=== PATIENT | female | born 1990 | race Caucasian/White ===

== ENCOUNTER 2020-05-27 14:42 | Emergency (ER) | payer OTHER ==
[2020-05-27 15:07] VITALS: RESP 18; TEMP 98.3
[2020-05-27 15:24] LABS: Basophils # (A) 0.1 k/uL (0-0.2); Basophils % (A) 1 %; Eosinophils # (A) 0.1 k/uL (0-0.7); Eosinophils % (A) 1 %; HCT 47.4 % (34.0-46.0); HGB 16.1 gm/dL (11.4-16.0); Lymphocytes # (A) 1.9 k/uL (1.0-4.8); Lymphocytes % (A) 26 %; MCHC 34.1 g/dL (31.0-37.0); MCV 96.7 fL (80.0-100.0); Mean Platelet Volume 7.5; Monocytes # (A) 0.3 k/uL (0-1.0); Monocytes % (A) 4 %; Neutrophils % (A) 67 %; Platelet Count 383 k/uL (150-450); RDW 13.9 % (11.5-15.5); WBC 7.5 k/uL (3.8-10.6)
[2020-05-27 15:32] LABS: Partial Thromboplastin Time 23.2 sec (22.0-30.0); Prothrombin Time 10.7 sec (9.0-12.0)
[2020-05-27 15:33] LABS: ALT 100 U/L (4-34); AST 100 U/L (14-36); African American GFR (CKD) >90 (>60 ml/min/1.73 sqM); Albumin 5.5 g/dL (3.5-5.0); Alkaline Phosphatase 74 U/L (38-126); Anion Gap 19 mmol/L; Blood Urea Nitrogen 11 mg/dL (7-17); Calcium 10.1 mg/dL (8.4-10.2); Carbon Dioxide 21 mmol/L (22-30); Chloride 98 mmol/L (98-107); Glucose 117 mg/dL (74-99); Magnesium 1.8 mg/dL (1.6-2.3); Non-African American GFR(CKD) >90 (>60 ml/min/1.73 sqM); Potassium 3.8 mmol/L (3.5-5.1); Sodium 138 mmol/L (137-145); Total Bilirubin 0.6 mg/dL (0.2-1.3)
[2020-05-27 15:37] LABS: Alcohol 190 mg/dL
[2020-05-27] MEDS ORDERED: SODIUM CHLORIDE 0.9% 1,000 ML IV ONE (16:10)
[2020-05-27] MEDS ORDERED: LORazepam 2 MG/ML INJ IV STA (16:17)
[2020-05-27] MEDS ORDERED: SODIUM CHLORIDE 0.9% 500 ML 500 ML IV ONE ×2 (16:18→18:07)
--- NOTE | 2020-05-27 16:20 | ED ---
General Adult HPI - General Chief complaint: Arrhythmia/Palpitations Stated complaint: SOB,Poss Dehydrated Time Seen by Provider: 05/27/20 16:10 Source: patient, RN notes reviewed, old records reviewed Mode of arrival: ambulatory Limitations: no limitations - History of Present Illness Initial comments: 29-year-old female presented for evaluation of racing heart, dehydration. Patient admits to drinking one pint of alcohol over the past several days. She states this is typical of her she goes on a several-day binge drinking and then abstains. She's had nausea and vomiting. She feels very dehydrated and feels her heart is racing. She denies central chest pain. She has some mild dyspnea associated with this. No abdominal pain. No suicidal or homicidal ideation. - Related Data Home Medications Medication Instructions Recorded Confirmed FLUoxetine HCL [PROzac] 10 mg PO DAILY 05/27/20 05/27/20 Previous Rx's Medication Instructions Recorded diazePAM [Valium] 5 mg PO TID PRN 3 Days #9 tab 05/27/20 Allergies Allergy/AdvReac Type Severity Reaction Status Date / Time No Known Allergies Allergy Verified 05/27/20 17:17 Review of Systems ROS Statement: Those systems with pertinent positive or pertinent negative responses have been documented in the HPI. ROS Other: All systems not noted in ROS Statement are negative. Past Medical History Past Medical History: No Reported History Past Surgical History: No Surgical Hx Reported Smoking Status: Never smoker Past Alcohol Use History: Daily Past Drug Use History: None Reported General Exam Limitations: no limitations General appearance: alert, in no apparent distress Head exam: Present: atraumatic, normocephalic Eye exam: Present: normal appearance, PERRL ENT exam: Present: mucous membranes dry Neck exam: Present: normal inspection. Absent: tenderness, meningismus Respiratory exam: Present: normal lung sounds bilaterally. Absent: respiratory distress, wheezes, rales Cardiovascular Exam: Present: normal rhythm, tachycardia GI/Abdominal exam: Present: soft. Absent: distended, tenderness, guarding, rebound Extremities exam: Present: normal inspection, normal capillary refill. Absent: calf tenderness Neurological exam: Present: alert, oriented X3, CN II-XII intact. Absent: motor sensory deficit Psychiatric exam: Present: normal affect, normal mood Skin exam: Present: warm, dry, intact Course Vital Signs 05/27/20 05/27/20 05/27/20 14:57 16:54 18:28 Temperature 98.3 F Pulse Rate 140 H 109 H 117 H Respiratory 18 18 18 Rate Blood Pressure 133/99 124/88 137/93 O2 Sat by Pulse 99 100 98 Oximetry - Reevaluation(s) Reevaluation #1: 05/27/20 17:56 Chest x-ray negative for focal pneumonia or acute findings EKG Findings - EKG Comments: EKG Findings:: EKG: Sinus tachycardia, rate of 134, FL interval 118, QRS duration 82, QTC 459, no ST segment elevation. Medical Decision Making - Medical Decision Making 29-year-old female presenting with alcohol intoxication, dehydration, palpitations. Patient is tachycardic, patient dehydrated. She's had vomiting this morning. She is to drinking 1/5 of vodka yesterday and had a shot of alcohol this morning. Patient's has had a CBC showing hemoconcentration with a hemoglobin 16. Otherwise normal. Patient has normal electrolytes, negative d- dimer, negative troponin, urinalysis shows 3+ ketones consistent with dehydration and alcoholic acidosis. Patient given 2 L of IV fluid, as well as Ativan. She is feeling better. She will maintain oral hydration at home. She's given Valium for withdrawal symptoms she will follow with her primary care physician and return with worsening or changing symptoms. - Lab Data Result diagrams: 05/27/20 15:15 05/27/20 15:15 Lab Results 05/27/20 05/27/20 05/27/20 Range/Units 15:15 15:15 15:15 WBC 7.5 (3.8-10.6) k/uL RBC 4.90 (3.80-5.40) m/uL Hgb 16.1 H (11.4-16.0) gm/dL Hct 47.4 H (34.0-46.0) % MCV 96.7 (80.0-100.0) fL MCH 33.0 (25.0-35.0) pg MCHC 34.1 (31.0-37.0) g/dL RDW 13.9 (11.5-15.5) % Plt Count 383 (150-450) k/uL MPV 7.5 Neutrophils % 67 % Lymphocytes % 26 % Monocytes % 4 % Eosinophils % 1 % Basophils % 1 % Neutrophils # 5.0 (1.3-7.7) k/uL Lymphocytes # 1.9 (1.0-4.8) k/uL Monocytes # 0.3 (0-1.0) k/uL Eosinophils # 0.1 (0-0.7) k/uL Basophils # 0.1 (0-0.2) k/uL PT 10.7 (9.0-12.0) sec INR 1.0 (<1.2) APTT 23.2 (22.0-30.0) sec D-Dimer (<0.60) mg/L FEU Sodium 138 (137-145) mmol/L Potassium 3.8 (3.5-5.1) mmol/L Chloride 98 (98-107) mmol/L Carbon Dioxide 21 L (22-30) mmol/L Anion Gap 19 mmol/L BUN 11 (7-17) mg/dL Creatinine 0.72 (0.52-1.04) mg/dL Est GFR (CKD-EPI)AfAm >90 (>60 ml/min/1.73 sqM) Est GFR (CKD-EPI)NonAf >90 (>60 ml/min/1.73 sqM) Glucose 117 H (74-99) mg/dL Calcium 10.1 (8.4-10.2) mg/dL Magnesium 1.8 (1.6-2.3) mg/dL Total Bilirubin 0.6 (0.2-1.3) mg/dL AST 100 H (14-36) U/L ALT 100 H (4-34) U/L Alkaline Phosphatase 74 (38-126) U/L Troponin I (0.000-0.034) ng/mL Total Protein 9.0 H (6.3-8.2) g/dL Albumin 5.5 H (3.5-5.0) g/dL Urine Color Urine Appearance (Clear) Urine pH (5.0-8.0) Ur Specific [place] (1.001-1.035) Urine Protein (Negative) Urine Glucose (UA) (Negative) Urine Ketones (Negative) Urine Blood (Negative) Urine Nitrite (Negative) Urine Bilirubin (Negative) Urine Urobilinogen (<2.0) mg/dL Ur Leukocyte Esterase (Negative) Urine RBC (0-5) /hpf Urine WBC (0-5) /hpf Ur Squamous Epith Cells (0-4) /hpf Urine Mucus (None) /hpf Serum Alcohol 190 mg/dL 05/27/20 05/27/20 05/27/20 Range/Units 15:15 15:15 18:27 WBC (3.8-10.6) k/uL RBC (3.80-5.40) m/uL Hgb (11.4-16.0) gm/dL Hct (34.0-46.0) % MCV (80.0-100.0) fL MCH (25.0-35.0) pg MCHC (31.0-37.0) g/dL RDW (11.5-15.5) % Plt Count (150-450) k/uL MPV Neutrophils % % Lymphocytes % % Monocytes % % Eosinophils % % Basophils % % Neutrophils # (1.3-7.7) k/uL Lymphocytes # (1.0-4.8) k/uL Monocytes # (0-1.0) k/uL Eosinophils # (0-0.7) k/uL Basophils # (0-0.2) k/uL PT (9.0-12.0) sec INR (<1.2) APTT (22.0-30.0) sec D-Dimer 0.21 (<0.60) mg/L FEU Sodium (137-145) mmol/L Potassium (3.5-5.1) mmol/L Chloride (98-107) mmol/L Carbon Dioxide (22-30) mmol/L Anion Gap mmol/L BUN (7-17) mg/dL Creatinine (0.52-1.04) mg/dL Est GFR (CKD-EPI)AfAm (>60 ml/min/1.73 sqM) Est GFR (CKD-EPI)NonAf (>60 ml/min/1.73 sqM) Glucose (74-99) mg/dL Calcium (8.4-10.2) mg/dL Magnesium (1.6-2.3) mg/dL Total Bilirubin (0.2-1.3) mg/dL AST (14-36) U/L ALT (4-34) U/L Alkaline Phosphatase (38-126) U/L Troponin I <0.012 (0.000-0.034) ng/mL Total Protein (6.3-8.2) g/dL Albumin (3.5-5.0) g/dL Urine Color Yellow Urine Appearance Cloudy H (Clear) Urine pH 6.5 (5.0-8.0) Ur Specific [place] 1.024 (1.001-1.035) Urine Protein 2+ H (Negative) Urine Glucose (UA) Negative (Negative) Urine Ketones 3+ H (Negative) Urine Blood Negative (Negative) Urine Nitrite Negative (Negative) Urine Bilirubin Negative (Negative) Urine Urobilinogen <2.0 (<2.0) mg/dL Ur Leukocyte Esterase Negative (Negative) Urine RBC <1 (0-5) /hpf Urine WBC 2 (0-5) /hpf Ur Squamous Epith Cells 8 H (0-4) /hpf Urine Mucus Many H (None) /hpf Serum Alcohol mg/dL Disposition Clinical Impression: Dehydration, Alcohol intoxication Disposition: HOME SELF-CARE Condition: Good Instructions (If sedation given, give patient instructions): Dehydration (ED), Alcohol Intoxication (ED) Prescriptions: diazePAM [Valium] 5 mg PO TID PRN 3 Days #9 tab PRN Reason: Anxiety Is patient prescribed a controlled substance at d/c from ED?: No Referrals: Nonstaff,Physician [Primary Care Provider] - 1-2 days Kory Perea [STAFF PHYSICIAN] - 1-2 days Time of Disposition: 19:00
--- NOTE | 2020-05-27 17:00 | XR ---
EXAMINATION TYPE: XR chest 2V DATE OF EXAM: 05/27/2020 COMPARISON: NONE HISTORY: Short of breath TECHNIQUE: 2 views FINDINGS: Heart and mediastinum are normal. Lungs are clear. Diaphragm is normal. Bony thorax appears normal. IMPRESSION: Normal chest.
[2020-05-27 18:30] VITALS: BP 137/93; PULSE 117
[2020-05-27 18:43] LABS: Appearance,Urine Cloudy (Clear); Bilirubin,Urine Negative (Negative); Blood,Urine Negative (Negative); Color,Urine Yellow; Glucose,Urine (UA) Negative (Negative); Ketones,Urine 3+ (Negative); Leukocyte Esterase,Urine Negative (Negative); Mucus,Urine Many /hpf; Nitrite,Urine Negative (Negative); PH, Urine 6.5 (5.0-8.0); Protein,Urine 2+ (Negative); RBC,Urine <1 /hpf (0-5); Specific Gravity,Urine 1.024 (1.001-1.035); Squamous Epithelial Cell,Urine 8 /hpf (0-4); Urobilinogen,Urine <2.0 mg/dL (<2.0); WBC,Urine 2 /hpf (0-5)
== END 2020-05-27 19:43 | disposition home or self-care (01) ==
LOC: EC 14:42
DX: F10.129 Alcohol abuse with intoxication, unspecified (principal); E86.0 Dehydration; R00.0 Tachycardia, unspecified; Y90.9 Presence of alcohol in blood, level not specified; Z79.899 Other long term (current) drug therapy
CPT/HCPCS: 36415; 93005; 85379; 80053; 83735; 84484; 85025; 85610; 85730; 81001; 71046; 99285; 96374; 96361 ×3; G0480; J2060; 80320

== ENCOUNTER 2021-07-08 23:52 | Observation (INO) | payer OTHER ==
[2021-07-09] MEDS ORDERED: SODIUM CHLORIDE 0.9% 1,000 ML with THIAMINE 100 MG, FOLIC ACID 1 MG IV ONE ×3 (00:13)
[2021-07-09] MEDS ORDERED: LORazepam 2 MG/ML INJ IV STA (00:16)
--- NOTE | 2021-07-09 00:22 | ED ---
Alcohol HPI - General Chief Complaint: Alcohol Stated Complaint: ETOH Time Seen by Provider: 07/09/21 00:05 Source: patient, family, RN notes reviewed Mode of arrival: ambulatory Limitations: no limitations - History of Present Illness Initial Comments: This is a pleasant 30-year-old female who presents to [facility] stating that she is undergoing alcohol withdrawal. Patient states she has not had anything to drink for 2 days. Patient admits to 1.5 fifths of alcohol per day. This was hard work. 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 She denies any seizure activity. She denies any auditory or visual hallucinations. She has mild headache. Nausea without vomiting. No changes in balance. No chest pain or shortness of breath. Patient states that she has a history of tachycardia secondary to alcohol use and withdrawal. Patient denies chance of . Patient has no significant past medical history otherwise. Patient is a nonsmoker however she does jose luis. She denies any illicit drug abuse. Patient denies any recent illness. Patient fully vaccinated against COVID-19. - Related Data Home Medications Medication Instructions Recorded Confirmed FLUoxetine HCL [PROzac] 10 mg PO DAILY 05/27/20 05/27/20 Previous Rx's Medication Instructions Recorded diazePAM [Valium] 5 mg PO TID PRN 3 Days #9 tab 05/27/20 Allergies Allergy/AdvReac Type Severity Reaction Status Date / Time No Known Allergies Allergy Verified 07/09/21 00:02 Review of Systems ROS Statement: Those systems with pertinent positive or pertinent negative responses have been documented in the HPI. ROS Other: All systems not noted in ROS Statement are negative. Past Medical History Past Medical History: No Reported History History of Any Multi-Drug Resistant Organisms: None Reported Past Surgical History: No Surgical Hx Reported Past Psychological History: Anxiety, Depression Smoking Status: Never smoker Past Alcohol Use History: Daily Past Drug Use History: None Reported General Exam - General Exam Comments Initial Comments: Mildly anxious appearing 30-year-old female presents in no acute distress. Patient does not appear to be ill or toxic. Cranial nerves II through XII are intact. Patient alert and oriented 4. Limitations: no limitations General appearance: alert, in no apparent distress Head exam: Present: atraumatic, normocephalic, normal inspection Eye exam: Present: normal appearance, PERRL, EOMI. Absent: scleral icterus, conjunctival injection, periorbital swelling ENT exam: Present: normal exam, mucous membranes moist Neck exam: Present: normal inspection. Absent: tenderness, meningismus, lym phadenopathy Respiratory exam: Present: normal lung sounds bilaterally. Absent: respiratory distress, wheezes, rales, rhonchi, stridor Cardiovascular Exam: Present: normal rhythm, tachycardia, normal heart sounds. Absent: systolic murmur, diastolic murmur, rubs, gallop, clicks GI/Abdominal exam: Present: soft, normal bowel sounds. Absent: distended, tenderness, guarding, rebound, rigid Extremities exam: Present: normal inspection, full ROM, normal capillary refill. Absent: tenderness, pedal edema, joint swelling, calf tenderness Back exam: Present: normal inspection Neurological exam: Present: alert, oriented X3, CN II-XII intact, normal gait. Absent: motor sensory deficit Psychiatric exam: Present: normal mood, anxious. Absent: homicidal ideation, suicidal ideation Skin exam: Present: warm, dry, intact, normal color. Absent: rash Course Vital Signs 07/08/21 23:56 Temperature 98.2 F Pulse Rate 119 H Respiratory 22 Rate Blood Pressure 137/92 O2 Sat by Pulse 96 Oximetry Medical Decision Making - Medical Decision Making Patient CIWA score is 4 for nausea without vomiting, mild headache, mild agitation, and mild anxiety. Noted the patient denies any suicidality or homicidality. Patient states her last drink of alcohol was 2 days ago. Patient's alcohol level was 376. Patient has 4+ ketones and a CO2 level of 17. 9 and Metabolic acidosis suspected. Patient reevaluated and is sleeping comfortably in bed. No distress. Patient will be admitted to [facility] hospitalist group for observation due to alcohol intoxication. The case was discussed in detail with ED attending physician. Presentation, findings, treatment plan discussed in detail. - Lab Data Result diagrams: 07/09/21 00:11 07/09/21 00:11 Lab Results 07/09/21 07/09/21 07/09/21 Range/Units 00:11 00:11 00:11 WBC 8.2 (3.8-10.6) k/uL RBC 5.10 (3.80-5.40) m/uL Hgb 15.9 (11.4-16.0) gm/dL Hct 46.1 H (34.0-46.0) % MCV 90.4 (80.0-100.0) fL MCH 31.2 (25.0-35.0) pg MCHC 34.5 (31.0-37.0) g/dL RDW 11.6 (11.5-15.5) % Plt Count 330 (150-450) k/uL MPV 7.9 Neutrophils % 67 % Lymphocytes % 25 % Monocytes % 6 % Eosinophils % 0 % Basophils % 1 % Neutrophils # 5.5 (1.3-7.7) k/uL Lymphocytes # 2.1 (1.0-4.8) k/uL Monocytes # 0.5 (0-1.0) k/uL Eosinophils # 0.0 (0-0.7) k/uL Basophils # 0.1 (0-0.2) k/uL PT 10.4 (9.0-12.0) sec INR 1.0 (<1.2) Sodium 136 L (137-145) mmol/L Potassium 4.0 (3.5-5.1) mmol/L Chloride 93 L (98-107) mmol/L Carbon Dioxide 17 L (22-30) mmol/L Anion Gap 26 mmol/L BUN 14 (7-17) mg/dL Creatinine 0.72 (0.52-1.04) mg/dL Est GFR (CKD-EPI)AfAm >90 (>60 ml/min/1.73 sqM) Est GFR (CKD-EPI)NonAf >90 (>60 ml/min/1.73 sqM) Glucose 78 (74-99) mg/dL POC Glucose (mg/dL) (75-99) mg/dL POC Glu Tax Audit Manager ID Calcium 9.4 (8.4-10.2) mg/dL Phosphorus 3.8 (2.5-4.5) mg/dL Magnesium 2.1 (1.6-2.3) mg/dL Total Bilirubin 0.9 (0.2-1.3) mg/dL AST 86 H (14-36) U/L ALT 61 H (4-34) U/L Alkaline Phosphatase 80 (38-126) U/L Total Protein 8.7 H (6.3-8.2) g/dL Albumin 5.3 H (3.5-5.0) g/dL Urine Color Urine Appearance (Clear) Urine pH (5.0-8.0) Ur Specific [place] (1.001-1.035) Urine Protein (Negative) Urine Glucose (UA) (Negative) Urine Ketones (Negative) Urine Blood (Negative) Urine Nitrite (Negative) Urine Bilirubin (Negative) Urine Urobilinogen (<2.0) mg/dL Ur Leukocyte Esterase (Negative) Urine RBC (0-5) /hpf Urine WBC (0-5) /hpf Ur Squamous Epith Cells (0-4) /hpf Hyaline Casts (0-2) /lpf Urine Mucus (None) /hpf Urine HCG, Qual (Not Detectd) Salicylates <1.0 mg/dL Urine Opiates Screen (NotDetected) Ur Oxycodone Screen (NotDetected) Urine Methadone Screen (NotDetected) Ur Propoxyphene Screen (NotDetected) Acetaminophen <10.0 ug/mL Ur Barbiturates Screen (NotDetected) U Tricyclic Antidepress (NotDetected) Ur Phencyclidine Scrn (NotDetected) Ur Amphetamines Screen (NotDetected) U Methamphetamines Scrn (NotDetected) U Benzodiazepines Scrn (NotDetected) Urine Cocaine Screen (NotDetected) U Marijuana (THC) Screen (NotDetected) Serum Alcohol 376 H* mg/dL 07/09/21 07/09/21 07/09/21 Range/Units 00:12 00:17 00:36 WBC (3.8-10.6) k/uL RBC (3.80-5.40) m/uL Hgb (11.4-16.0) gm/dL Hct (34.0-46.0) % MCV (80.0-100.0) fL MCH (25.0-35.0) pg MCHC (31.0-37.0) g/dL RDW (11.5-15.5) % Plt Count (150-450) k/uL MPV Neutrophils % % Lymphocytes % % Monocytes % % Eosinophils % % Basophils % % Neutrophils # (1.3-7.7) k/uL Lymphocytes # (1.0-4.8) k/uL Monocytes # (0-1.0) k/uL Eosinophils # (0-0.7) k/uL Basophils # (0-0.2) k/uL PT (9.0-12.0) sec INR (<1.2) Sodium (137-145) mmol/L Potassium (3.5-5.1) mmol/L Chloride (98-107) mmol/L Carbon Dioxide (22-30) mmol/L Anion Gap mmol/L BUN (7-17) mg/dL Creatinine (0.52-1.04) mg/dL Est GFR (CKD-EPI)AfAm (>60 ml/min/1.73 sqM) Est GFR (CKD-EPI)NonAf (>60 ml/min/1.73 sqM) Glucose (74-99) mg/dL POC Glucose (mg/dL) 76 (75-99) mg/dL POC Glu Tax Audit Manager ID Erick Parada Calcium (8.4-10.2) mg/dL Phosphorus (2.5-4.5) mg/dL Magnesium (1.6-2.3) mg/dL Total Bilirubin (0.2-1.3) mg/dL AST (14-36) U/L ALT (4-34) U/L Alkaline Phosphatase (38-126) U/L Total Protein (6.3-8.2) g/dL Albumin (3.5-5.0) g/dL Urine Color Yellow Urine Appearance Cloudy H (Clear) Urine pH 5.5 (5.0-8.0) Ur Specific [place] 1.023 (1.001-1.035) Urine Protein 2+ H (Negative) Urine Glucose (UA) Negative (Negative) Urine Ketones 4+ H (Negative) Urine Blood Trace H (Negative) Urine Nitrite Negative (Negative) Urine Bilirubin Negative (Negative) Urine Urobilinogen <2.0 (<2.0) mg/dL Ur Leukocyte Esterase Negative (Negative) Urine RBC <1 (0-5) /hpf Urine WBC 2 (0-5) /hpf Ur Squamous Epith Cells 5 H (0-4) /hpf Hyaline Casts 8 H (0-2) /lpf Urine Mucus Occasional H (None) /hpf Urine HCG, Qual Not Detected (Not Detectd) Salicylates mg/dL Urine Opiates Screen Not Detected (NotDetected) Ur Oxycodone Screen Not Detected (NotDetected) Urine Methadone Screen Not Detected (NotDetected) Ur Propoxyphene Screen Not Detected (NotDetected) Acetaminophen ug/mL Ur Barbiturates Screen Not Detected (NotDetected) U Tricyclic Antidepress Not Detected (NotDetected) Ur Phencyclidine Scrn Not Detected (NotDetected) Ur Amphetamines Screen Not Detected (NotDetected) U Methamphetamines Scrn Not Detected (NotDetected) U Benzodiazepines Scrn Not Detected (NotDetected) Urine Cocaine Screen Not Detected (NotDetected) U Marijuana (THC) Screen Detected H (NotDetected) Serum Alcohol mg/dL Disposition Clinical Impression: Alcoholic intoxication, Alcoholic ketosis Disposition: ADMITTED IP TO THIS [facility] Condition: Stable Time of Disposition: 01:51
[2021-07-09 00:39] LABS: Glucose,Whole Blood 76 mg/dL (75-99)
[2021-07-09 00:47] LABS: Basophils # (A) 0.1 k/uL (0-0.2); Basophils % (A) 1 %; Eosinophils % (A) 0 %; HCT 46.1 % (34.0-46.0); HGB 15.9 gm/dL (11.4-16.0); Lymphocytes # (A) 2.1 k/uL (1.0-4.8); Lymphocytes % (A) 25 %; MCH 31.2 pg (25.0-35.0); MCHC 34.5 g/dL (31.0-37.0); MCV 90.4 fL (80.0-100.0); Mean Platelet Volume 7.9; Monocytes # (A) 0.5 k/uL (0-1.0); Monocytes % (A) 6 %; Neutrophils # (A) 5.5 k/uL (1.3-7.7); Neutrophils % (A) 67 %; Platelet Count 330 k/uL (150-450); RDW 11.6 % (11.5-15.5); WBC 8.2 k/uL (3.8-10.6)
[2021-07-09 00:51] LABS: Appearance,Urine Cloudy (Clear); Bilirubin,Urine Negative (Negative); Blood,Urine Trace (Negative); Color,Urine Yellow; Glucose,Urine (UA) Negative (Negative); Hyaline Casts,Urine 8 /lpf (0-2); Ketones,Urine 4+ (Negative); Leukocyte Esterase,Urine Negative (Negative); Mucus,Urine Occasional /hpf; Nitrite,Urine Negative (Negative); PH, Urine 5.5 (5.0-8.0); Protein,Urine 2+ (Negative); RBC,Urine <1 /hpf (0-5); Specific Gravity,Urine 1.023 (1.001-1.035); Squamous Epithelial Cell,Urine 5 /hpf (0-4); Urobilinogen,Urine <2.0 mg/dL (<2.0); WBC,Urine 2 /hpf (0-5)
[2021-07-09] MEDS ORDERED: ONDANSETRON 4 MG/2 ML VIAL IVP STA (00:52)
[2021-07-09 01:00] LABS: ALT 61 U/L (4-34); AST 86 U/L (14-36); Acetaminophen <10.0 ug/mL; African American GFR (CKD) >90 (>60 ml/min/1.73 sqM); Albumin 5.3 g/dL (3.5-5.0); Alkaline Phosphatase 80 U/L (38-126); Anion Gap 26 mmol/L; Blood Urea Nitrogen 14 mg/dL (7-17); Calcium 9.4 mg/dL (8.4-10.2); Carbon Dioxide 17 mmol/L (22-30); Chloride 93 mmol/L (98-107); Glucose 78 mg/dL (74-99); Magnesium 2.1 mg/dL (1.6-2.3); Non-African American GFR(CKD) >90 (>60 ml/min/1.73 sqM); Phosphorus 3.8 mg/dL (2.5-4.5); Salicylate <1.0 mg/dL; Sodium 136 mmol/L (137-145); Total Bilirubin 0.9 mg/dL (0.2-1.3); Total Protein 8.7 g/dL (6.3-8.2)
[2021-07-09 01:06] LABS: Prothrombin Time 10.4 sec (9.0-12.0)
[2021-07-09 01:10] LABS: Alcohol 376 mg/dL
[2021-07-09 01:16] LABS: Amphetamine Screen,Urine Not Detected (NotDetected); Barbiturate Screen,Urine Not Detected (NotDetected); Benzodiazepines Screen,Urine Not Detected (NotDetected); Cocaine Screen,Urine Not Detected (NotDetected); Methadone Screen, Urine Not Detected (NotDetected); Opiate Screen,Urine Not Detected (NotDetected); Oxycodone Screen, Urine Not Detected (NotDetected); Phencyclidine Screen,Urine Not Detected (NotDetected); Tricyclic Antidepressant,Urine Not Detected (NotDetected); Urn Cannabinoid Scrn Detected (NotDetected)
[2021-07-09] MEDS ORDERED: THIAMINE 100 MG/ML 2 ML VIAL IM STA (01:43)
[2021-07-09] MEDS ORDERED: LORazepam 2 MG/ML INJ IV PRN ×3 (01:43)
[2021-07-09] MEDS ORDERED: ONDANSETRON 4 MG/2 ML VIAL IVP PRN (01:44)
[2021-07-09] MEDS: DEXTROSE 5%-0.45% NACL 1,000 ML IV SCH ×4 (04:27→21:42)
[2021-07-09] MEDS ORDERED: TEMAZEPAM 15 MG CAP PO PRN (13:27)
--- NOTE | 2021-07-09 14:01 | HP ---
HISTORY AND PHYSICAL DATE OF SERVICE: 07/09/2021 CHIEF COMPLAINT: Alcohol intoxication. HISTORY OF PRESENT ILLNESS: This 30-year-old woman with a past medical history of multiple medical problems, including history of anxiety and depression, being followed by Dr. Alayna Gar in the outpatient setting, was taking too much alcohol because of social stressors; according to the patient, she was drinking one and one-half fifths of alcohol index of alcohol daily. The patient was clean for two years apparently. The patient also had features of early delirium tremens and some tremors. There is no history of any fever, rigor or chills at this time. PAST MEDICAL HISTORY: History of anxiety, depression, history EtOH. HOME MEDICATIONS: Prozac 20 mg daily. ALLERGIES: NONE. FAMILY HISTORY: No history of heart disease or strokes in the family. SOCIAL HISTORY: History of alcohol and smoking. REVIEW OF SYSTEMS: ENT: No diminished hearing. No diminished vision. CARDIOVASCULAR SYSTEM: As mentioned earlier. RESPIRATORY SYSTEM: As mentioned earlier. GI: No nausea, vomiting, diarrhea. : No dysuria. NERVOUS SYSTEM: No numbness, weakness. ALLERGY/IMMUNOLOGY: No asthma or hay fever. MUSCULOSKELETAL: As mentioned earlier. HEMATOLOGY/ONCOLOGY: No history of anemia. ENDOCRINE: No history of diabetes or hypothyroidism. CONSTITUTIONAL: As mentioned earlier. DERMATOLOGY: Negative. RHEUMATOLOGY: Negative. PSYCHIATRY: As mentioned earlier. PHYSICAL EXAMINATION: Patient alert and oriented x3. Pulse is 112, blood pressure 113/74, respirations 17, temperature 98 degrees, pulse ox 97% on room air. HEENT: Conjunctivae normal. NECK: No jugular venous distention. CARDIOVASCULAR: S1, S2 muffled. RESPIRATION: Breath sounds diminished at the bases. No rhonchi. No crackles. ABDOMEN: Soft, nontender. LEGS: No edema. No swelling. NERVOUS SYSTEM: Minimal tremors present. SKIN: No ulcer, rash, bleeding. JOINTS: No active deforming arthropathy. LABS: CBC within normal limits. Sodium 136. AST is 85, ALT is 81, albumin is 5.3. UA noted. Alcohol was 376. THC was positive. ASSESSMENT: 1. Acute alcohol intoxication. 2. Acute delirium tremens, early. 3. Sinus tachycardia. 4. Elevated AST, ALT; alcoholic hepatitis. 5. History of anxiety, depression. 6. History of EtOH. 7. FULL CODE. RECOMMENDATIONS AND DISCUSSION: In this 30-year-old woman who presented with multiple complex medical issues, we will monitor the patient closely, continue the current medications, continue symptomatic treatment. Continue with CIWA protocol. Continue with the dextrose. Continue to supplement vitamins. I will initiate clonidine also to the current regimen. Repeat labs. Monitor closely. Prognosis guarded. Further recommendations to follow. A copy of this dictation is being forwarded to Dr. Alayna Gar, who is the primary physician. . LYN / FREDIN: [id number] /
--- NOTE | 2021-07-09 14:02 | P.CN ---
Psychiatric Consult - . 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 REASON FOR REFERRAL: Psychiatry was consulted for alcohol dependence HISTORY OF PRESENT ILLNESS: The patient presented to the hospital yesterday for alcohol withdrawal. The patient claimed that she recently relapsed on drinking and reported that she was drinking heavily in the ER before coming in the hospital and stated that she was sober for 2 years before. She states that she has been on a recent binge drinking episode. Her AST/ALT was 86/61, blood alcohol level was 376 in the ER. Patient was found to be tachycardic. Her UDS was positive for THC. Patient's nurse claims that patient has not had any behavioral issues thus far and has been withdrawing. Patient was seen at the bedside and agreeable to speak to newswriter. She was fairly calm and attempts to be appropriate and directable during the conversation. She spoke about maintaining a two-year history of sobriety however recently relapsed on alcohol over the last weekend. She states that her last drink was yesterday before coming into the hospital. She states that her boyfriend has been around her who is also drinking and she claims that he is also in the hospital for alcohol withdrawal. She claims that she has no other stressors in her life. She states that she has chronic depression however feels "better now". She states that she does have anxiety as well. She claims that she has been taking Prozac. She did mention that her sleep was fair and has a fair appetite. She is not endorsing and denies any paranoia. She claims that she is drinking approximately 2/5 of vodka per day and has a history of tremors and withdrawal however denies any DTs or seizures from withdrawal. She claims that she does have a DUI 11 years ago. Alcohol and has been to rehab twice in the past. She states that yesterday she did have visual hallucinations however is not experiencing that at this time reports them as "distorted images". At this time patient denies any suicidal or homical ideations, intent or plan. Patient denies any current auditory, visual hallucinations and denies any paranoia or delusions. Patients admits to using marijuana daily, claims that she vapes nicotine products daily. She also states that she was using Xanax approximately 0.25 mg per day. PAST PSYCHIATRIC HISTORY: Patient has a a history of alcohol use, anxiety and depression. She claims that she is on Xanax and also Prozac. Patient denies any previous psychiatric hospitalizations. She claims that she is to follow-up with [facility] wants to "get out of that system". She is currently not following up with any psychiatrist however does see a "addiction doctor" in [place]. Patient denies any history of suicide attempts in the past. PAST MEDICAL HISTORY: denies. ALLERGIES: as per EMR. CHEMICAL DEPENDENCY HISTORY: as per HPI. FAMILY PSYCHIATRIC/SUBSTANCE USE HISTORY: States that her mother has anxiety and depression SOCIAL HISTORY: Patient was born and raised in [facility]. She states that she completed high school and did some college. She states that she had a DUI 11 years ago. She has no kids lives in apartment with her boyfriend and is currently single. She works as a caregiver. MENTAL STATUS EXAM: General Appearance: Patient appears to be stated age is alert, directable, and attempts to cooperative. Patient appears to have fair hygiene and grooming wearing hospital gown with fair eye contact. Behavior: Patient is calmly lying in bed without any agitated behavior. Restless at times. Directable. Speech: Patient's speech is fluent and nonpressured. Mood/Affect: Patient reports their mood is "better now but anxious", affect is congruent Suicidality/Homicidality: Patient denies having any suicidal or homicidal ideation intent or plan. Perceptions: Patient denies any visual hallucinations and denies any auditory hallucinations Though content/process: There is no evidence of any delusional thought content and thought process is linear and goal-directed. Memory and concentration: AOX3, grossly intact for the purposes of this session. Can spell "WORLD" backwards Judgment and insight: poor IMPRESSIONS: Alcohol use disorder, severe, currently in withdrawal History of depressive disorder and anxiety disorder Cannabis use disorder Nicotine dependence PLAN: -At this time patient DOES NOT meet criteria for inpatient psychiatric admission. -Would recommend the following medication changes/additions: Start Librium 25 mg 3 times a day scheduled for alcohol withdrawal. Restart patient on Prozac her home dose 20 mg daily for mood/anxiety. Added acamprosate 333 mg 3 times a day for one day then increase to 666 mg 3 times a day starting Tuesday for alcohol cravings. continue with thiamine, FA and mvm. -CIWA protocol with PRN Ativan for alcohol withdrawal. Continue to monitor vital signs. -supervisor cemetery workers to provide patient with outpatient mental health/psychiatry resources for appropriate follow up upon discharge -Contact Center Associate spoke with patient about substance abuse and the harmful effects on me dical and mental health, patient verbally understood and agreed. -supervisor cemetery workers to provide patient substance use treatment resources including AA/NA meetings in the community. -Contact Center Associate spoke with patient about rehab and patient states that she does not want to do that at this time. -Communicated plan to patient's nurse -Psychiatry will sign off at this time -Please contact with any questions. 07/09/21 13:52
[2021-07-09] MEDS: FLUoxetine HCL 20 MG CAP PO SCH (14:24)
[2021-07-09] MEDS: chlordiazePOXIDE 25 MG CAP PO SCH ×2 (14:24→21:41)
[2021-07-09] MEDS: cloNIDine HCL 0.1 MG TAB PO SCH ×2 (14:24→21:41)
[2021-07-09] MEDS: ACAMPROSATE CALCIUM 333 MG TABLET.DR PO SCH ×2 (14:25→21:41)
[2021-07-09] MEDS: THIAMINE 100 MG TAB PO SCH (17:37)
[2021-07-10] MEDS: DEXTROSE 5%-0.45% NACL 1,000 ML IV SCH (06:14)
[2021-07-10] MEDS ORDERED: PANTOPRAZOLE 40 MG TABLET PO SCH (07:30)
[2021-07-10 07:41] VITALS: BP 147/96; PULSE 92; RESP 20; TEMP 98.4
[2021-07-10] MEDS: ACAMPROSATE CALCIUM 333 MG TABLET.DR PO SCH (07:46)
[2021-07-10] MEDS: THIAMINE 100 MG TAB PO SCH (07:47)
[2021-07-10] MEDS: chlordiazePOXIDE 25 MG CAP PO SCH (07:47)
[2021-07-10] MEDS: FLUoxetine HCL 20 MG CAP PO SCH (07:47)
[2021-07-10] MEDS: cloNIDine HCL 0.1 MG TAB PO SCH (07:47)
[2021-07-10 08:51] LABS: Basophils % (A) 1 %; Eosinophils % (A) 1 %; HCT 40.3 % (34.0-46.0); HGB 13.2 gm/dL (11.4-16.0); Lymphocytes % (A) 22 %; MCH 30.2 pg (25.0-35.0); MCHC 32.8 g/dL (31.0-37.0); MCV 92.2 fL (80.0-100.0); Mean Platelet Volume 8.4; Monocytes # (A) 0.3 k/uL (0-1.0); Monocytes % (A) 6 %; Neutrophils # (A) 3.3 k/uL (1.3-7.7); Neutrophils % (A) 70 %; Platelet Count 184 k/uL (150-450); RBC 4.37 m/uL (3.80-5.40); RDW 11.6 % (11.5-15.5); WBC 4.6 k/uL (3.8-10.6)
[2021-07-10 08:55] LABS: ALT 94 U/L (4-34); AST 132 U/L (14-36); African American GFR (CKD) >90 (>60 ml/min/1.73 sqM); Albumin 4.2 g/dL (3.5-5.0); Alkaline Phosphatase 66 U/L (38-126); Anion Gap 4 mmol/L; Blood Urea Nitrogen 5 mg/dL (7-17); Calcium 9.5 mg/dL (8.4-10.2); Carbon Dioxide 33 mmol/L (22-30); Chloride 99 mmol/L (98-107); Glucose 127 mg/dL (74-99); Non-African American GFR(CKD) >90 (>60 ml/min/1.73 sqM); Potassium 3.3 mmol/L (3.5-5.1); Sodium 136 mmol/L (137-145); Total Bilirubin 1.4 mg/dL (0.2-1.3); Total Protein 6.9 g/dL (6.3-8.2)
[2021-07-10] MEDS ORDERED: MULTIVITAMINS, THERA 1 EACH TAB PO SCH (12:00)
[2021-07-10] MEDS ORDERED: FOLIC ACID 1 MG TAB PO SCH (12:00)
--- NOTE | 2021-07-10 16:15 | P.DS ---
Providers Date of admission: 07/09/21 02:15 Expected date of discharge: 07/10/21 Attending physician: Lion Khan MD Consults: 07/09/21 07:13 Consult Physician Urgent Consulting Provider: Phillip Ga Consult Reason/Comments: alcoholic dependance Do you want consulting provider notified?: Yes Primary care physician: Alayna Tenorio Hospital Course: Final diagnosis Acute alcohol intoxication Acute delirium tremens, early Sinus tachycardia Elevated AST, ALT, alcoholic hepatitis History of anxiety, depression History of EtOH Full code Discharge disposition Patient is being discharged in a stable condition with guarded prognosis to home. Patient will follow-up with Dr. Tenorio in the outpatient setting upon discharge. Recommend repeat labs in 2-3 days and prescription was provided and patient will continue on Librium taper for alcohol withdrawal. Total time taken is greater than 35 minutes. Hospital course This is a 30-year-old female who was recently admitted with acute alcohol intoxication along with early delirium tremens and being closely monitored. Patient was maintained on CIWA protocol and was evaluated by psychiatry recommending close outpatient follow-up with [facility] and possible alcohol rehab. Patient was cleared by psychiatry and will continue on a Librium taper on discharge and encourage the patient to follow-[facility] for further resources and possible alcohol rehab. She will also continue on multivitamin, folic acid, thiamine and was started on clonidine and recommended close outpatient follow-up with Dr. Tenorio. Recommend repeat labs and a prescription was provided for follow-up CBC BMP in 2-3 days. Encouraged patient to avoid all alcohol intake and follow-up with primary care provider on discharge. Currently no reports of chest pain, shortness of breath, or palpitations. Patient is afebrile. No reports of nausea or vomiting and patient is tolerating diet. Patient will be discharged home today. Guarded prognosis. On exam vital signs are stable. Cardio S1, S2 are muffled. Respiratory system shows diminished breath sounds at the bases with no wheezing or rhonchi noted. Abdomen is soft and and nontender. Nervous system shows no focal deficits. Please refer to medication reconciliation sheet for a list of medications. Patient Condition at Discharge: Stable Plan - Discharge Summary Discharge Rx Participant: No New Discharge Prescriptions: New Acamprosate Calcium [Campral] 666 mg PO TID 30 Days #180 tablet cloNIDine HCL [Catapres] 0.1 mg PO BID 30 Days #60 tab chlordiazePOXIDE HCl [Librium] 25 mg PO TID #12 cap Multivitamins, Thera [Multivitamin (formulary)] 1 each PO DAILY@1200 #30 tab Folic Acid 1 mg PO DAILY@1200 #30 tab Thiamine [Vitamin B-1] 100 mg PO BID-W/MEALS #60 tab Continue FLUoxetine HCL [PROzac] 20 mg PO DAILY 30 Days #30 cap Discharge Medication List Acamprosate Calcium [Campral] 666 mg PO TID 30 Days #180 tablet 07/10/21 [Rx] FLUoxetine HCL [PROzac] 20 mg PO DAILY 30 Days #30 cap 07/10/21 [Rx] Folic Acid 1 mg PO DAILY@1200 #30 tab 07/10/21 [Rx] Multivitamins, Thera [Multivitamin (formulary)] 1 each PO DAILY@1200 #30 tab 07/10/21 [Rx] Thiamine [Vitamin B-1] 100 mg PO BID-W/MEALS #60 tab 07/10/21 [Rx] chlordiazePOXIDE HCl [Librium] 25 mg PO TID #12 cap 07/10/21 [Rx] cloNIDine HCL [Catapres] 0.1 mg PO BID 30 Days #60 tab 07/10/21 [Rx] Follow up Appointment(s)/Referral(s): Alayna Tenorio MD [Primary Care Provider] - 1-2 Days (Patient will make her own follow up appointment - in the process of finding a new doctor) Ambulatory/Diagnostic Orders: Complete Blood Count w/diff [LAB.AMB] Time Frame: 2 Days, Location: None Selected Patient Instructions/Handouts: Chlordiazepoxide (By mouth), Clonidine (By mouth), Fluoxetine (By mouth), Thiamine (By mouth), Folic Acid (By mouth), Multivitamins, Adult Formula (By mouth), Acamprosate (By mouth), Abuse of Alcohol (DC) Activity/Diet/Wound Care/Special Instructions: Activity Limited until follow-up Follow-up with primary care provider on discharge Continue current diet Repeat labs in 2-3 days Continue medications as prescribed Avoid any alcohol intake Follow-up with [facility] in the outpatient setting Discharge Disposition: HOME SELF-CARE
[2021-07-11] MEDS ORDERED: ACAMPROSATE CALCIUM 333 MG TABLET.DR PO SCH (09:00)
== END 2021-07-10 12:54 | disposition home or self-care (01) ==
LOC: EC 23:52 → 6NMEDSUR 07-09 02:15 → 3NCARDOBS 07-09 06:11
PROVIDERS: ADMIT Internal Medicine; ATTEND Internal Medicine
DX: F10.929 Alcohol use, unspecified with intoxication, unspecified (principal); F10.931 Alcohol use, unspecified with withdrawal delirium; R00.0 Tachycardia, unspecified; K70.10 Alcoholic hepatitis without ascites; F32.A Depression, unspecified; F41.9 Anxiety disorder, unspecified; Y90.8 Blood alcohol level of 240 mg/100 ml or more; E88.89 Other specified metabolic disorders; F17.290 Nicotine dependence, other tobacco product, uncomplicated; Z20.822 Contact with and (suspected) exposure to COVID-19; Z79.899 Other long term (current) drug therapy; Z71.41 Alcohol abuse counseling and surveillance of alcoholic; Z81.8 Family history of other mental and behavioral disorders
CPT/HCPCS: 96366 ×3; 96376 ×2; 96365; 96372; 96375; 99285; 36415; 93005; 80053 ×2; 83735; 84100; 85025 ×2; 85610; 81001; 81025; 80306; 80143; 87635; 80179; G0378 ×3; G0480; J2060; J3411; J2405; 80320

== ENCOUNTER 2021-08-25 20:09 | Emergency (ER) | payer OTHER ==
[2021-08-25] MEDS ORDERED: chlordiazePOXIDE 25 MG CAP PO STA (23:49)
--- NOTE | 2021-08-25 23:53 | ED ---
Alcohol HPI - General Source: patient Mode of arrival: wheelchair Limitations: no limitations - History of Present Illness MD Complaint: alcohol intoxication Last Drink: just JIRA ADMINISTRATOR Previous Visits for Alcohol Intoxication?: Yes Recent Trauma: No Associated Symptoms: denies other symptoms Treatments Prior to Arrival: none <Jj Ennis - Last Filed: 08/25/21 23:50> <Darius Causey - Last Filed: 08/26/21 09:43> - General Chief Complaint: Psychiatric Symptoms Stated Complaint: Eval,ETOH Time Seen by Provider: 08/25/21 23:37 - History of Present Illness Initial Comments: This patient is a 30-year-old woman who presents with complaint that she has "relapsed." Patient states that she had been a heavy drinker, had quit for a period of time and then for the past 8 days has been drinking heavily again. She states that she drinks vodka and has gone through a between 1 and 2 gallons of vodka over the past 8 days. She states that she is feeling anxious and tremulous now. Denies other complaints. Denies trauma. (Jj Ennis) - Related Data Home Medications Medication Instructions Recorded Confirmed LORazepam [Ativan] 0.5 mg PO BID PRN 08/26/21 08/26/21 Previous Rx's Medication Instructions Recorded FLUoxetine HCL [PROzac] 20 mg PO DAILY 30 Days #30 cap 07/10/21 Allergies Allergy/AdvReac Type Severity Reaction Status Date / Time No Known Allergies Allergy Verified 08/26/21 08:32 Review of Systems ROS Other: All systems not noted in ROS Statement are negative. Constitutional: Denies: fever Respiratory: Denies: cough, dyspnea Cardiovascular: Reports: palpitations. Denies: chest pain Gastrointestinal: Denies: abdominal pain, nausea, vomiting Genitourinary: Denies: dysuria, hematuria Musculoskeletal: Denies: back pain Skin: Denies: rash Neurological: Denies: headache, weakness Psychiatric: Reports: anxiety <Jj Ennis - Last Filed: 08/25/21 23:50> ROS Other: All systems not noted in ROS Statement are negative. <Darius Causey - Last Filed: 08/26/21 09:43> ROS Statement: Those systems with pertinent positive or pertinent negative responses have been documented in the HPI. Past Medical History Past Medical History: No Reported History Additional Past Medical History / Comment(s): ETOH abuse with withdrawal tachycardia. History of Any Multi-Drug Resistant Organisms: None Reported Past Surgical History: No Surgical Hx Reported Past Anesthesia/Blood Transfusion Reactions: Unable to Obtain Additional Past Anesthesia/Blood Transfusion Reaction / Comment(s): Pt has never had anesthesia Past Psychological History: Anxiety, Depression Smoking Status: Never smoker Past Alcohol Use History: Daily, Occasional Past Drug Use History: Marijuana - Past Family History Mother Additional Family Medical History / Comment(s): Anxiety and depression. Father Family Medical History: No Reported History <LacieJj levy - Last Filed: 08/25/21 23:50> General Exam Limitations: no limitations General appearance: alert, in no apparent distress Head exam: Present: atraumatic, normocephalic Eye exam: Present: normal appearance Respiratory exam: Present: normal lung sounds bilaterally. Absent: respiratory distress, wheezes, rales, rhonchi, stridor Cardiovascular Exam: Present: normal rhythm, tachycardia (Heart rate 120 at my Exam), normal heart sounds. Absent: systolic murmur, diastolic murmur, rubs, gallop GI/Abdominal exam: Present: soft. Absent: distended, tenderness, guarding, rebound, rigid, mass Extremities exam: Present: normal inspection, normal capillary refill. Absent: pedal edema, calf tenderness Back exam: Present: normal inspection. Absent: CVA tenderness (R), CVA tenderness (L) Neurological exam: Present: alert Psychiatric exam: Present: anxious. Absent: manic, homicidal ideation, suicidal ideation Skin exam: Present: warm, dry, intact, normal color. Absent: rash <RaymonJj - Last Filed: 08/25/21 23:50> Course Vital Signs 08/25/21 08/26/21 08/26/21 20:29 05:00 06:00 Temperature 99.4 F 98.1 F Pulse Rate 129 H 98 Respiratory 20 16 Rate Blood Pressure 123/87 127/79 O2 Sat by Pulse 98 95 97 Oximetry Medical Decision Making <Darius Causey - Last Filed: 08/26/21 09:43> - Medical Decision Making patient was evaluated by EPS and they determined the patient was safe to go home and the patient was in agreement with this. (Darius Causey) Disposition <Jj Ennis - Last Filed: 08/25/21 23:50> Is patient prescribed a controlled substance at d/c from ED?: No Time of Disposition: 09:42 <Darius Causey - Last Filed: 08/26/21 09:43> Clinical Impression: Alcoholic intoxication Disposition: HOME SELF-CARE Instructions (If sedation given, give patient instructions): Alcohol Intoxication (ED) Referrals: Alayna Gar MD [Primary Care Provider] - 1-2 days
[2021-08-26] MEDS ORDERED: SODIUM CHLORIDE 0.9% 2,000 ML IV ONE (04:31)
[2021-08-26] MEDS ORDERED: ONDANSETRON 4 MG/2 ML VIAL IVP STA (04:31)
[2021-08-26] MEDS ORDERED: LORazepam 2 MG/ML INJ IV STA (04:32)
[2021-08-26 09:42] VITALS: BP 138/107; PULSE 14; RESP 115; TEMP 98
== END 2021-08-26 09:55 | disposition home or self-care (01) ==
LOC: EC 20:09
DX: F10.129 Alcohol abuse with intoxication, unspecified (principal)
CPT/HCPCS: 82075; 99284; 96374; 96375; 96361; J2060; J2405

== ENCOUNTER 2022-01-16 18:18 | Observation (INO) | payer OTHER ==
[2022-01-16] MEDS ORDERED: SODIUM CHLORIDE 0.9% 1,000 ML IV STA (20:14)
[2022-01-16] MEDS ORDERED: THIAMINE 100 MG/ML 2 ML VIAL IM STA (20:18)
[2022-01-16] MEDS ORDERED: LORazepam 2 MG/ML INJ IV PRN ×3 (20:18)
--- NOTE | 2022-01-16 21:00 | ED ---
Alcohol HPI - General Chief Complaint: Alcohol Stated Complaint: alcohol withdrawl Time Seen by Provider: 01/16/22 20:03 Source: patient Mode of arrival: ambulatory Limitations: no limitations - History of Present Illness Initial Comments: Patient is a 31-year-old female presenting with chief complaint of alcohol withdrawal. Patient has a several year long history of alcohol abuse, patient states that she recently went on a two-week long "francis" where she was drinking 15-20. Per day. Patient states that her last drink was yesterday, states she was attempting to detox at home when she felt like her heart was beating out of her chest, her anxiety increased, and she felt nauseous. Patient denies suicidal ideation. No recent trauma. - Related Data Home Medications Medication Instructions Recorded Confirmed FLUoxetine HCL [PROzac] 40 mg PO DAILY 01/16/22 01/16/22 Folic Acid 1 mg PO DAILY 01/16/22 01/16/22 LORazepam [Ativan] 1 mg PO BID PRN 01/16/22 01/16/22 Triamcinolone 0.1% Ointment 1 applic TOPICAL BID PRN 01/16/22 01/16/22 [Kenalog 0.1% Ointment] Allergies Allergy/AdvReac Type Severity Reaction Status Date / Time No Known Allergies Allergy Verified 08/26/21 08:32 Review of Systems ROS Statement: Those systems with pertinent positive or pertinent negative responses have been documented in the HPI. ROS Other: All systems not noted in ROS Statement are negative. Past Medical History Past Medical History: No Reported History Additional Past Medical History / Comment(s): ETOH abuse with withdrawal tachycardia. History of Any Multi-Drug Resistant Organisms: None Reported Past Surgical History: No Surgical Hx Reported Past Anesthesia/Blood Transfusion Reactions: Unable to Obtain Additional Past Anesthesia/Blood Transfusion Reaction / Comment(s): Pt has never had anesthesia Past Psychological History: Anxiety, Depression Smoking Status: Never smoker Past Alcohol Use History: Daily, Occasional Past Drug Use History: Marijuana - Past Family History Mother Additional Family Medical History / Comment(s): Anxiety and depression. Father Family Medical History: No Reported History General Exam Limitations: no limitations General appearance: alert, in no apparent distress Head exam: Present: atraumatic, normocephalic, normal inspection Eye exam: Present: normal appearance, EOMI. Absent: scleral icterus, p eriorbital swelling Neck exam: Present: normal inspection Respiratory exam: Present: normal lung sounds bilaterally. Absent: respiratory distress, wheezes, rales, rhonchi, stridor Cardiovascular Exam: Present: normal rhythm, tachycardia, normal heart sounds. Absent: systolic murmur, diastolic murmur, rubs, gallop, clicks Neurological exam: Present: alert, oriented X3, CN II-XII intact Psychiatric exam: Present: normal affect, normal mood Skin exam: Present: warm, dry, intact, normal color. Absent: rash Course Vital Signs 01/16/22 01/16/22 19:04 22:36 Temperature 98.1 F Pulse Rate 139 H 100 Respiratory 18 16 Rate Blood Pressure 115/85 140/98 O2 Sat by Pulse 94 L 99 Oximetry Medical Decision Making - Medical Decision Making Patient is a 31-year-old female presenting with chief complaint of alcohol withdrawal. Patient states that for the last 2 weeks she has been consuming around 15-20 beers per day, her last drink was yesterday. She states that today she began experiencing sensations of heart racing, increased anxiety, nausea. On examination she is tachycardic. CBC and CMP are grossly negative. Serum alcohol level is 179. Urine shows trace protein and ketones. Urine toxicology is positive for benzodiazepines and marijuana. On initial presentation patient's heart rate was 139, on reassessment heart rate is 100 bpm. Given the patient's initial presentation, I feel she would benefit from observation for alcohol withdrawal. I spoke with Dr. Edmonds from [facility] who agreed to admit the patient. I discussed these findings and the plan with the patient, she conveyed verbal understanding and agreed to the plan. I discussed this case with my attending Dr. Clark - Lab Data Result diagrams: 01/16/22 20:57 01/16/22 20:57 Disposition Clinical Impression: Alcohol withdrawal syndrome Disposition: ADMITTED IP TO THIS [facility] Condition: Fair Time of Disposition: 22:47 Decision to Admit Reason: Admit from Decision Date: 01/16/22 Decision Time: 22:47
[2022-01-16 21:22] LABS: Basophils # (A) 0.1 k/uL (0-0.2); Basophils % (A) 1 %; Eosinophils # (A) 0.1 k/uL (0-0.7); Eosinophils % (A) 1 %; HCT 47.1 % (34.0-46.0); HGB 14.9 gm/dL (11.4-16.0); Lymphocytes # (A) 1.3 k/uL (1.0-4.8); Lymphocytes % (A) 20 %; MCH 29.8 pg (25.0-35.0); MCHC 31.7 g/dL (31.0-37.0); MCV 94.2 fL (80.0-100.0); Mean Platelet Volume 8.2; Monocytes # (A) 0.4 k/uL (0-1.0); Monocytes % (A) 7 %; Neutrophils # (A) 4.5 k/uL (1.3-7.7); Neutrophils % (A) 70 %; Platelet Count 276 k/uL (150-450); RDW 12.1 % (11.5-15.5); WBC 6.4 k/uL (3.8-10.6)
[2022-01-16 21:46] LABS: ALT 20 U/L (4-34); AST 35 U/L (14-36); African American GFR (CKD) >90 (>60 ml/min/1.73 sqM); Albumin 4.8 g/dL (3.5-5.0); Alkaline Phosphatase 91 U/L (38-126); Amylase 64 U/L (30-110); Anion Gap 9 mmol/L; Blood Urea Nitrogen 5 mg/dL (7-17); Calcium 9.7 mg/dL (8.4-10.2); Carbon Dioxide 28 mmol/L (22-30); Chloride 101 mmol/L (98-107); Glucose 88 mg/dL (74-99); Lipase 232 U/L (23-300); Non-African American GFR(CKD) >90 (>60 ml/min/1.73 sqM); Phosphorus 3.3 mg/dL (2.5-4.5); Potassium 4.5 mmol/L (3.5-5.1); Sodium 138 mmol/L (137-145); Total Bilirubin 0.4 mg/dL (0.2-1.3); Total Protein 7.6 g/dL (6.3-8.2)
[2022-01-16 21:52] LABS: Alcohol 179 mg/dL
[2022-01-16 22:13] LABS: Appearance,Urine Clear (Clear); Bilirubin,Urine Negative (Negative); Blood,Urine Negative (Negative); Color,Urine Yellow; Glucose,Urine (UA) Negative (Negative); Ketones,Urine Trace (Negative); Leukocyte Esterase,Urine Negative (Negative); Nitrite,Urine Negative (Negative); PH, Urine 5.5 (5.0-8.0); Protein,Urine Trace (Negative); Specific Gravity,Urine 1.017 (1.001-1.035); Urobilinogen,Urine <2.0 mg/dL (<2.0)
[2022-01-16 22:37] LABS: Amphetamine Screen,Urine Not Detected (NotDetected); Barbiturate Screen,Urine Not Detected (NotDetected); Benzodiazepines Screen,Urine Detected (NotDetected); Cocaine Screen,Urine Not Detected (NotDetected); Methadone Screen, Urine Not Detected (NotDetected); Opiate Screen,Urine Not Detected (NotDetected); Oxycodone Screen, Urine Not Detected (NotDetected); Phencyclidine Screen,Urine Not Detected (NotDetected); Tricyclic Antidepressant,Urine Not Detected (NotDetected); Urn Cannabinoid Scrn Detected (NotDetected)
[2022-01-16] MEDS ORDERED: NALOXONE 0.4 MG/ML 1 ML VIAL IV PRN (22:56)
[2022-01-17] MEDS ORDERED: LORazepam 1 MG/0.5 ML VIAL IV PRN ×2 (01:17→01:28)
[2022-01-17] MEDS ORDERED: CALCIUM CARBONATE 500 MG CHEWABLE PO PRN (01:21)
[2022-01-17] MEDS: LORazepam 1 MG/0.5 ML VIAL IV PRN ×2 (01:33→19:48)
[2022-01-17] MEDS: SODIUM CHLORIDE 0.9% 1,000 ML IV SCH ×3 (01:33→22:52)
--- NOTE | 2022-01-17 02:37 | P.HPIM ---
History of Present Illness H&P Date: 01/16/22 Chief Complaint: Alcohol withdrawal 31-year-old female with no significant past medical history. Patient has been struggling with alcohol dependence for years with multiple r elapses. She has relapse couple weeks ago and today decided to stop drinking as started affecting her life she hasn't been to work for over a week. Her last drink was Tuesday morning. She came into the hospital that evening as she has history of delirium tremens and seizures from alcohol withdrawal she was starting to get agitated and shaky for which she is seeking medical help. She is also to consider rehab after discharge if needed. Otherwise denies any GI bleeding denies any melena denies any abdominal pain denies any chest pain trouble breathing denies any nausea or vomiting denies any fevers or chills Review of Systems Pertinent positives as noted in HPI. All other systems were reviewed and are negative Past Medical History Past Medical History: No Reported History Additional Past Medical History / Comment(s): ETOH abuse with withdrawal tachycardia. History of Any Multi-Drug Resistant Organisms: None Reported Past Surgical History: No Surgical Hx Reported Past Anesthesia/Blood Transfusion Reactions: Unable to Obtain Additional Past Anesthesia/Blood Transfusion Reaction / Comment(s): Pt has never had anesthesia Past Psychological History: Anxiety, Depression Smoking Status: Never smoker Past Alcohol Use History: Daily, Occasional Past Drug Use History: Marijuana - Past Family History Mother Additional Family Medical History / Comment(s): Anxiety and depression. Father Family Medical History: No Reported History Medications and Allergies Home Medications Medication Instructions Recorded Confirmed Type FLUoxetine HCL [PROzac] 40 mg PO DAILY 01/16/22 01/16/22 History Folic Acid 1 mg PO DAILY 01/16/22 01/16/22 History LORazepam [Ativan] 1 mg PO BID PRN 01/16/22 01/16/22 History Triamcinolone 0.1% Ointment 1 applic TOPICAL BID PRN 01/16/22 01/16/22 History [Kenalog 0.1% Ointment] Allergies Allergy/AdvReac Type Severity Reaction Status Date / Time No Known Allergies Allergy Verified 08/26/21 08:32 Physical Exam Vitals: Vital Signs Temp Pulse Resp BP Pulse Ox 01/16/22 22:36 100 16 140/98 99 01/16/22 19:04 98.1 F 139 H 18 115/85 94 L Intake and Output 01/16/22 01/16/22 01/17/22 14:59 22:59 06:59 Other: Weight 64.41 kg Constitutional: No acute distress, conversant, pleasant Eyes: Anicteric sclerae, moist conjunctiva, Pupils equal round reactive to light ENMT: NC/AT Oropharynx clear, no erythema, or exudates Neck: Supple, FROM, no masses, or JVD No carotid bruits No thyromegaly Lungs: Clear to auscultation Clear to percussion Normal respiratory effort, no accessory muscle use Cardiovascular: Heart regular in rate and rhythm, No murmurs, gallops, or rubs No peripheral edema Abdominal: Soft Nontender, no guarding, rebound or rigidity Abdomen moving with respiration Normoactive bowel sounds No hepatomegaly, No splenomegaly No palpable mass No abdominal wall hernia noted Skin: Normal temperature, tone, texture, turgor No induration No subcutaneous nodules No rash, lesions No ulcers Extremities: No digital cyanosis No clubbing Pedal pulses intact and symmetrical Radial pulses intact and symmetrical No calf tenderness Psychiatric: Alert and oriented to person, place and time Appropriate affect fair judgement Neuro Muscles Strength 5/5 in all 4 extremities Sensation to light touch grossly present throughout Cranial nerves II-XII grossly intact No focal sensory deficits Lymphatics: no palpable cervical or supraclavicular , or inguinal lymph nodes Results CBC & Chem 7: 01/16/22 20:57 01/16/22 20:57 Labs: Abnormal Lab Results - Last 24 Hours (Table) 01/16/22 01/16/22 01/16/22 Range/Units 20:57 20:57 21:54 Hct 47.1 H (34.0-46.0) % BUN 5 L (7-17) mg/dL Urine Protein Trace H (Negative) Urine Ketones Trace H (Negative) U Benzodiazepines Scrn Detected H (NotDetected) U Marijuana (THC) Screen Detected H (NotDetected) Assessment and Plan Assessment: Alcohol dependence, alcohol withdrawal syndrome History of delirium tremens and alcohol withdrawal seizures Ativan when necessary per CIWA scale IV fluid hydration Thiamine daily Seizure precautions PPI daily Tums when necessary for indigestion DVT prophylaxis mechanical Full code
[2022-01-17] MEDS: THIAMINE 100 MG TAB PO SCH ×2 (08:56→15:55)
[2022-01-17] MEDS: PANTOPRAZOLE 40 MG TABLET PO SCH ×2 (08:56→08:57)
[2022-01-17] MEDS ORDERED: MELATONIN 5 MG TABLET PO PRN (09:57)
--- NOTE | 2022-01-17 09:59 | P.PN ---
Subjective Progress Note Date: 01/17/22 Patient is a 31 yo F with a hx of alcoholism and relapse that started 2 weeks ago who presented to the ED for help with detoxing. She has required Librium and vivitrol in the past to maintain sobriety. She was admitted for impending alcohol withdrawal. She was started on CIWA protocol. Patient seen and examined at bedside. She reports she is feeling very anxious. She denies any nausea, tremors, or other signs of alcohol withdrawal. She has gone to [place] for inpatient detox in the past. She continues to follow up in addiction medicine specialist out of [facility]. She has used Librium and Vivitrol in the past with success. She would like to use these again. We discussed that Librium can be dangerous if combinded with other alcohol or drugs. General: ill appearing, no distress, appears at stated age Derm: warm, dry Head: atraumatic, normocephalic, symmetric Eyes: EOMI, no lid lag, anicteric sclera Mouth: no lip lesion, mucus membranes moist Cardiovascular: S1S2 reg, no murmur, positive posterior tibial pulse bilateral, Lungs: Course bs bilateral, no rhonchi, no rales , no accessory muscle use Abdominal: soft, nontender to palpation, no guarding, no appreciable organomegaly Ext: no gross muscle atrophy, no edema, no contractures Neuro: CN II-XI grossly intact, no focal neuro deficits Psych: Alert, oriented, appropriate affect Assessment/Plan: Alcohol abuse with impending withdrawal - Start Librium - CIWA - Folic acid and thiamine Anxiety - resume home prozac Likely home tomorrow wiht librium tre Objective - Vital Signs Vital signs: Vital Signs Temp 98.3 F 01/17/22 08:00 Pulse 68 01/17/22 08:00 Resp 16 01/17/22 02:00 BP 124/83 01/17/22 08:00 Pulse Ox 99 01/17/22 08:00 FiO2 Intake & Output 01/16/22 01/17/22 01/17/22 18:59 06:59 18:59 Weight 64.41 kg Other: # Voids 1 - Labs CBC & Chem 7: 01/16/22 20:57 01/16/22 20:57 Labs: Abnormal Lab Results - Last 24 Hours (Table) 01/16/22 01/16/22 01/16/22 Range/Units 20:57 20:57 21:54 Hct 47.1 H (34.0-46.0) % BUN 5 L (7-17) mg/dL Urine Protein Trace H (Negative) Urine Ketones Trace H (Negative) U Benzodiazepines Scrn Detected H (NotDetected) U Marijuana (THC) Screen Detected H (NotDetected)
[2022-01-17] MEDS: ONDANSETRON 4 MG/2 ML VIAL IVP PRN ×2 (10:00→19:48)
[2022-01-17] MEDS: FOLIC ACID 1 MG TAB PO SCH (10:06)
[2022-01-17] MEDS: FLUoxetine HCL 20 MG CAP PO SCH (10:06)
[2022-01-17] MEDS: CLOTRIMAZOLE 1% CREAM 30 GM TUBE TOPICAL SCH (22:03)
[2022-01-18] MEDS: FLUoxetine HCL 20 MG CAP PO SCH (07:31)
[2022-01-18] MEDS: FOLIC ACID 1 MG TAB PO SCH (07:32)
[2022-01-18] MEDS: THIAMINE 100 MG TAB PO SCH (07:32)
[2022-01-18] MEDS: CLOTRIMAZOLE 1% CREAM 30 GM TUBE TOPICAL SCH (07:32)
[2022-01-18] MEDS: PANTOPRAZOLE 40 MG TABLET PO SCH (07:32)
[2022-01-18 08:08] VITALS: BP 132/95; PULSE 75; RESP 18; TEMP 97.7
--- NOTE | 2022-01-18 08:19 | P.DS ---
Providers Date of admission: 01/16/22 20:41 Expected date of discharge: 01/18/22 Attending physician: Tucker Evangelista MD Primary care physician: Alayna Gar [facility] Course: Discharge Diagnosis: Alcohol abuse with alcohol withdrawal Anxiety Hospital Course: Patient is a 31 yo F with a hx of alcoholism and relapse that started 2 weeks ago who presented to the ED for help with detoxing. She has required Librium and vivitrol in the past to maintain sobriety. She was admitted for impending alcohol withdrawal. She was started on CIWA protocol. Librium was added to help jose luis withdrawal symptoms. She continued to do well and did not require much IV Ativan dosing. She already follows with addiction medicine specialist out of [facility]. She takes the vicitrol in the past but had not been taking it recently. We discussed the risks and benefits of going home with Librium taper including if this is combined with alcohol overdose and unintentional . She is aware of the risks and benefits and would like to go home on a Librium taper she is determined to quit drinking. She is also on a sobriety maintenance program with a sponsor who she has reached out to. Patient was determined stable for discharge. She was given explicit instructions on how to complete her Librium taper. She'll also be reached out to her addiction medicine specialist today. She'll follow-up with Dr. Gar We did discuss that she should not be taking her as needed Ativan well on Librium. She will hold this until she completes a Librium taper. Patient seen and examined at bedside. Doing well. Feeling much better than yesterday. Alcohol withdrawal symptoms have abated and she is doing well on 20 mg of Librium 3 times daily. Patient feels as though she can manage her alcohol withdrawal symptoms at home appropriately with Librium. Vital signs reviewed and stable. General: nontoxic, no distress, appears at stated age Derm: warm, dry Head: atraumatic, normocephalic, symmetric Eyes: EOMI, no lid lag, anicteric sclera Mouth: no lip lesion, mucus membranes moist Cardiovascular: S1S2 reg, no murmur, positive posterior tibial pulse bilateral, Lungs: CTA bilateral, no rhonchi, no rales , no accessory muscle use Abdominal: soft, nontender to palpation, no guarding, no appreciable organomegaly Ext: no gross muscle atrophy, no edema, no contractures Neuro: CN II-XI grossly intact, no focal neuro deficits Psych: Alert, oriented, appropriate affect A total of 22 minutes of time were spent preparing this complex discharge summary. Patient was discharged on 01/18/2022. Patient Condition at Discharge: Fair Plan - Discharge Summary Discharge Rx Participant: No New Discharge Prescriptions: New chlordiazePOXIDE HCl [Librium] 0 mg PO DIRECTED #28 cap Continue FLUoxetine HCL [PROzac] 40 mg PO DAILY LORazepam [Ativan] 1 mg PO BID PRN PRN Reason: Anxiety Folic Acid 1 mg PO DAILY Triamcinolone 0.1% Ointment [Kenalog 0.1% Ointment] 1 applic TOPICAL BID PRN PRN Reason: psoriasis Discharge Medication List FLUoxetine HCL [PROzac] 40 mg PO DAILY 01/16/22 [History] Folic Acid 1 mg PO DAILY 01/16/22 [History] LORazepam [Ativan] 1 mg PO BID PRN 01/16/22 [History] Triamcinolone 0.1% Ointment [Kenalog 0.1% Ointment] 1 applic TOPICAL BID PRN 01/16/22 [History] chlordiazePOXIDE HCl [Librium] 0 mg PO DIRECTED #28 cap 01/18/22 [Rx] Follow up Appointment(s)/Referral(s): Alayna Gar MD [Primary Care Provider] - 1-2 days Activity/Diet/Wound Care/Special Instructions: Activity: as tolerated Diet: regular Special Instructions: Combining librium with other drugs and alcohol can lead to overdose and potentially Please do not use ativan when using librium as they are both benzos Please call your addiction medicine specialist to make jacki appointment and prior to starting vivitrol. Discharge Disposition: HOME SELF-CARE
== END 2022-01-18 10:00 | disposition home or self-care (01) ==
LOC: EC 18:18 → 4SSUR 20:41
PROVIDERS: ADMIT Internal Medicine; ATTEND Internal Medicine
DX: F10.239 Alcohol dependence with withdrawal, unspecified (principal); Y90.6 Blood alcohol level of 120-199 mg/100 ml; F41.9 Anxiety disorder, unspecified; F32.A Depression, unspecified; Z81.8 Family history of other mental and behavioral disorders; Z79.899 Other long term (current) drug therapy
CPT/HCPCS: 96376; 96375; 82075; 96372; 96374; 99285; 36415; 80053; 82150; 83690; 83735; 84100; 85025; 81003; 80306; G0378 ×3; G0480; J2060 ×2; J3411; J2405; 80320

== ENCOUNTER 2022-03-31 19:36 | Inpatient (IN) | payer OTHER ==
[2022-03-31] MEDS ORDERED: LORazepam 2 MG/ML INJ IV STA ×2 (21:42→23:37)
[2022-03-31] MEDS ORDERED: SODIUM CHLORIDE 0.9% 1,000 ML with MVI, ADULT NO.4 WITH VIT K 10 ML, THIAMINE 100 MG, F... IV ONE ×4 (21:43)
[2022-03-31] MEDS ORDERED: ONDANSETRON 4 MG/2 ML VIAL IVP STA (21:44)
--- NOTE | 2022-03-31 21:48 | ED ---
Alcohol HPI - General Stated Complaint: Alchol poison Time Seen by Provider: 03/31/22 21:36 Source: patient, RN notes reviewed Mode of arrival: ambulatory - History of Present Illness Initial Comments: This is a pleasant 31-year-old female presents to emergency parent stating that she is having increased anxiety, tremors, and alcohol withdrawal symptoms. Patient states she relapsed over the last several days after 63 days of sobriety. Patient has been through inpatient rehabilitation this year. Patient states she feels anxious. She has had a vomiting episode. Patient states she feels like she is having some visual hallucinations and strange feelings on her skin. No seizure activity. Describes a racing heart rate with palpitations but no chest pain. Patient denying any other illicit substance abuse. Patient states over the past 24 hours or so she drank a fifth of hard liquor. No headache, no fever or chills, no changes in vision or hearing, no sore throat or difficulty with speech, no neck pain, no chest pain or shortness of breath, no abdominal pain, , no changes in urination or bowel movements, , no extremity pain, no skin rashes or lesions. Past medical, surgical, social, and family history reviewed. MD Complaint: alcohol withdrawal - Related Data Home Medications Medication Instructions Recorded Confirmed FLUoxetine HCL [PROzac] 40 mg PO DAILY 01/16/22 01/16/22 Folic Acid 1 mg PO DAILY 01/16/22 01/16/22 LORazepam [Ativan] 1 mg PO BID PRN 01/16/22 01/16/22 Triamcinolone 0.1% Ointment 1 applic TOPICAL BID PRN 01/16/22 01/16/22 [Kenalog 0.1% Ointment] Previous Rx's Medication Instructions Recorded chlordiazePOXIDE HCl [Librium] 0 mg PO DIRECTED #28 cap 01/18/22 Allergies Allergy/AdvReac Type Severity Reaction Status Date / Time No Known Allergies Allergy Verified 03/31/22 21:45 Review of Systems ROS Statement: Those systems with pertinent positive or pertinent negative responses have been documented in the HPI. ROS Other: All systems not noted in ROS Statement are negative. Past Medical History Past Medical History: No Reported History Additional Past Medical History / Comment(s): ETOH abuse with withdrawal tachycardia. History of Any Multi-Drug Resistant Organisms: None Reported Past Surgical History: No Surgical Hx Reported Past Anesthesia/Blood Transfusion Reactions: Unable to Obtain Additional Past Anesthesia/Blood Transfusion Reaction / Comment(s): Pt has never had anesthesia Past Psychological History: Anxiety, Depression Smoking Status: Never smoker Past Alcohol Use History: Daily, Occasional Past Drug Use History: Marijuana - Past Family History Mother Additional Family Medical History / Comment(s): Anxiety and depression. Father Family Medical History: No Reported History General Exam - General Exam Comments Initial Comments: Anxious appearing 31-year-old female in moderate distress. Patient does not appear to be systemically toxic. I initially saw this patient in the triage area. Moist mucous membranes. Notable tremor. Tachycardic heart rate. Normal capillary refill. No mottling. Tachycardic We'll plan for admission. General appearance: alert, in distress Head exam: Present: atraumatic, normocephalic, normal inspection Eye exam: Present: normal appearance, PERRL, EOMI, nystagmus. Absent: scleral icterus, conjunctival injection, periorbital swelling ENT exam: Present: normal exam, normal oropharynx, mucous membranes moist, normal external ear exam. Absent: mucous membranes dry Neck exam: Present: normal inspection, full ROM. Absent: tenderness, men ingismus, lymphadenopathy Respiratory exam: Present: normal lung sounds bilaterally. Absent: respiratory distress, wheezes, rales, rhonchi, stridor Cardiovascular Exam: Present: normal rhythm, tachycardia, normal heart sounds. Absent: systolic murmur, diastolic murmur, rubs, gallop, clicks GI/Abdominal exam: Present: soft, normal bowel sounds. Absent: distended, tenderness, guarding, rebound, rigid Extremities exam: Present: normal inspection, full ROM, normal capillary refill. Absent: tenderness, pedal edema, joint swelling, calf tenderness Back exam: Present: normal inspection Neurological exam: Present: alert, oriented X3, CN II-XII intact, other (Generalized tremor noted.) Psychiatric exam: Present: normal affect, anxious Skin exam: Present: warm, dry, intact, normal color. Absent: rash Course Vital Signs 03/31/22 03/31/22 21:41 23:49 Temperature 99 F Pulse Rate 118 H 120 H Respiratory 18 20 Rate Blood Pressure 132/101 128/97 O2 Sat by Pulse 97 100 Oximetry - Reevaluation(s) Reevaluation #1: 03/31/22 23:39 Had to repeat the anxiolytic, patient still tremulous - Consultations Consultation #1: Case discussed in detail with Dr. Mota. Patient admitted for alcohol intoxication with withdrawal symptoms. Medical Decision Making - Medical Decision Making Given the patient's symptomatology of generalized tremor, vomiting, visual hallucinations, tactile disturbances and no nystagmus, patient likely will need admission for alcohol withdrawal. 2 mg of Ativan ordered initially. Banana bag. Gen. workup otherwise. CIWA = 12 - Lab Data Result diagrams: 03/31/22 22:11 03/31/22 22:11 Lab Results 03/31/22 03/31/22 03/31/22 Range/Units 22:11 22:11 22:11 WBC 11.0 H (3.8-10.6) k/uL RBC 5.04 (3.80-5.40) m/uL Hgb 15.6 (11.4-16.0) gm/dL Hct 45.1 (34.0-46.0) % MCV 89.4 (80.0-100.0) fL MCH 31.0 (25.0-35.0) pg MCHC 34.7 (31.0-37.0) g/dL RDW 11.9 (11.5-15.5) % Plt Count 287 (150-450) k/uL MPV 8.1 Neutrophils % 83 % Lymphocytes % 12 % Monocytes % 3 % Eosinophils % 1 % Basophils % 1 % Neutrophils # 9.1 H (1.3-7.7) k/uL Lymphocytes # 1.3 (1.0-4.8) k/uL Monocytes # 0.4 (0-1.0) k/uL Eosinophils # 0.1 (0-0.7) k/uL Basophils # 0.1 (0-0.2) k/uL PT 10.7 (9.0-12.0) sec INR 1.0 (<1.2) Sodium 134 L (137-145) mmol/L Potassium 4.5 (3.5-5.1) mmol/L Chloride 90 L (98-107) mmol/L Carbon Dioxide 20 L (22-30) mmol/L Anion Gap 24 mmol/L BUN 12 (7-17) mg/dL Creatinine 0.72 (0.52-1.04) mg/dL Est GFR (CKD-EPI)AfAm >90 (>60 ml/min/1.73 sqM) Est GFR (CKD-EPI)NonAf >90 (>60 ml/min/1.73 sqM) Glucose 87 (74-99) mg/dL Calcium 9.1 (8.4-10.2) mg/dL Phosphorus 3.2 (2.5-4.5) mg/dL Magnesium 1.8 (1.6-2.3) mg/dL Total Bilirubin 0.8 (0.2-1.3) mg/dL AST 185 H (14-36) U/L ALT 92 H (4-34) U/L Alkaline Phosphatase 85 (38-126) U/L Total Protein 8.0 (6.3-8.2) g/dL Albumin 5.3 H (3.5-5.0) g/dL Lipase 151 (23-300) U/L Urine Color Urine Appearance (Clear) Urine pH (5.0-8.0) Ur Specific [place] (1.001-1.035) Urine Protein (Negative) Urine Glucose (UA) (Negative) Urine Ketones (Negative) Urine Blood (Negative) Urine Nitrite (Negative) Urine Bilirubin (Negative) Urine Urobilinogen (<2.0) mg/dL Ur Leukocyte Esterase (Negative) Urine RBC (0-5) /hpf Urine WBC (0-5) /hpf Ur Squamous Epith Cells (0-4) /hpf Urine Bacteria (None) /hpf Hyaline Casts (0-2) /lpf Urine Mucus (None) /hpf Urine HCG, Qual (Not Detectd) Urine Opiates Screen (NotDetected) Ur Oxycodone Screen (NotDetected) Urine Methadone Screen (NotDetected) Ur Propoxyphene Screen (NotDetected) Ur Barbiturates Screen (NotDetected) U Tricyclic Antidepress (NotDetected) Ur Phencyclidine Scrn (NotDetected) Ur Amphetamines Screen (NotDetected) U Methamphetamines Scrn (NotDetected) U Benzodiazepines Scrn (NotDetected) Urine Cocaine Screen (NotDetected) U Marijuana (THC) Screen (NotDetected) Serum Alcohol 255 H* mg/dL 04/01/22 04/01/22 Range/Units 00:07 00:07 WBC (3.8-10.6) k/uL RBC (3.80-5.40) m/uL Hgb (11.4-16.0) gm/dL Hct (34.0-46.0) % MCV (80.0-100.0) fL MCH (25.0-35.0) pg MCHC (31.0-37.0) g/dL RDW (11.5-15.5) % Plt Count (150-450) k/uL MPV Neutrophils % % Lymphocytes % % Monocytes % % Eosinophils % % Basophils % % Neutrophils # (1.3-7.7) k/uL Lymphocytes # (1.0-4.8) k/uL Monocytes # (0-1.0) k/uL Eosinophils # (0-0.7) k/uL Basophils # (0-0.2) k/uL PT (9.0-12.0) sec INR (<1.2) Sodium (137-145) mmol/L Potassium (3.5-5.1) mmol/L Chloride (98-107) mmol/L Carbon Dioxide (22-30) mmol/L Anion Gap mmol/L BUN (7-17) mg/dL Creatinine (0.52-1.04) mg/dL Est GFR (CKD-EPI)AfAm (>60 ml/min/1.73 sqM) Est GFR (CKD-EPI)NonAf (>60 ml/min/1.73 sqM) Glucose (74-99) mg/dL Calcium (8.4-10.2) mg/dL Phosphorus (2.5-4.5) mg/dL Magnesium (1.6-2.3) mg/dL Total Bilirubin (0.2-1.3) mg/dL AST (14-36) U/L ALT (4-34) U/L Alkaline Phosphatase (38-126) U/L Total Protein (6.3-8.2) g/dL Albumin (3.5-5.0) g/dL Lipase (23-300) U/L Urine Color Yellow Urine Appearance Cloudy H (Clear) Urine pH 5.5 (5.0-8.0) Ur Specific [place] 1.024 (1.001-1.035) Urine Protein 2+ H (Negative) Urine Glucose (UA) Negative (Negative) Urine Ketones 4+ H (Negative) Urine Blood Moderate H (Negative) Urine Nitrite Negative (Negative) Urine Bilirubin Negative (Negative) Urine Urobilinogen <2.0 (<2.0) mg/dL Ur Leukocyte Esterase Negative (Negative) Urine RBC 1 (0-5) /hpf Urine WBC 4 (0-5) /hpf Ur Squamous Epith Cells 6 H (0-4) /hpf Urine Bacteria Occasional H (None) /hpf Hyaline Casts 19 H (0-2) /lpf Urine Mucus Few H (None) /hpf Urine HCG, Qual Not Detected (Not Detectd) Urine Opiates Screen Not Detected (NotDetected) Ur Oxycodone Screen Not Detected (NotDetected) Urine Methadone Screen Not Detected (NotDetected) Ur Propoxyphene Screen Not Detected (NotDetected) Ur Barbiturates Screen Not Detected (NotDetected) U Tricyclic Antidepress Not Detected (NotDetected) Ur Phencyclidine Scrn Not Detected (NotDetected) Ur Amphetamines Screen Not Detected (NotDetected) U Methamphetamines Scrn Not Detected (NotDetected) U Benzodiazepines Scrn Detected H (NotDetected) Urine Cocaine Screen Not Detected (NotDetected) U Marijuana (THC) Screen Detected H (NotDetected) Serum Alcohol mg/dL Disposition Clinical Impression: Alcoholic intoxication, Withdrawal symptoms, alcohol Disposition: ADMITTED IP TO THIS [facility] Condition: Fair Is patient prescribed a controlled substance at d/c from ED?: No Referrals: None,Stated [REFERRING] - 1-2 days Time of Disposition: 23:39 Decision to Admit Reason: Admit from EC Decision Time: 00:41
[2022-03-31 22:31] LABS: Prothrombin Time 10.7 sec (9.0-12.0)
[2022-03-31 22:32] LABS: Basophils # (A) 0.1 k/uL (0-0.2); Basophils % (A) 1 %; Eosinophils # (A) 0.1 k/uL (0-0.7); Eosinophils % (A) 1 %; HCT 45.1 % (34.0-46.0); HGB 15.6 gm/dL (11.4-16.0); Lymphocytes # (A) 1.3 k/uL (1.0-4.8); Lymphocytes % (A) 12 %; MCHC 34.7 g/dL (31.0-37.0); MCV 89.4 fL (80.0-100.0); Mean Platelet Volume 8.1; Monocytes # (A) 0.4 k/uL (0-1.0); Monocytes % (A) 3 %; Neutrophils # (A) 9.1 k/uL (1.3-7.7); Neutrophils % (A) 83 %; Platelet Count 287 k/uL (150-450); RBC 5.04 m/uL (3.80-5.40); RDW 11.9 % (11.5-15.5)
[2022-03-31 22:37] LABS: ALT 92 U/L (4-34); AST 185 U/L (14-36); African American GFR (CKD) >90 (>60 ml/min/1.73 sqM); Albumin 5.3 g/dL (3.5-5.0); Alkaline Phosphatase 85 U/L (38-126); Anion Gap 24 mmol/L; Blood Urea Nitrogen 12 mg/dL (7-17); Calcium 9.1 mg/dL (8.4-10.2); Carbon Dioxide 20 mmol/L (22-30); Chloride 90 mmol/L (98-107); Glucose 87 mg/dL (74-99); Lipase 151 U/L (23-300); Magnesium 1.8 mg/dL (1.6-2.3); Non-African American GFR(CKD) >90 (>60 ml/min/1.73 sqM); Phosphorus 3.2 mg/dL (2.5-4.5); Potassium 4.5 mmol/L (3.5-5.1); Sodium 134 mmol/L (137-145); Total Bilirubin 0.8 mg/dL (0.2-1.3)
[2022-03-31 23:02] LABS: Alcohol 255 mg/dL
--- NOTE | 2022-03-31 23:03 | XR ---
EXAMINATION TYPE: XR chest 1V portable DATE OF EXAM: 03/31/2022 COMPARISON: 05/27/2020 HISTORY: Vomiting TECHNIQUE: Single view FINDINGS: Heart and mediastinum are normal. Lungs are clear. Diaphragm is normal. Bony thorax appears normal. IMPRESSION: Normal chest. No change
[2022-04-01 00:31] LABS: Appearance,Urine Cloudy (Clear); Bacteria,Urine Occasional /hpf; Bilirubin,Urine Negative (Negative); Blood,Urine Moderate (Negative); Color,Urine Yellow; Glucose,Urine (UA) Negative (Negative); Hyaline Casts,Urine 19 /lpf (0-2); Ketones,Urine 4+ (Negative); Leukocyte Esterase,Urine Negative (Negative); Mucus,Urine Few /hpf; Nitrite,Urine Negative (Negative); PH, Urine 5.5 (5.0-8.0); Protein,Urine 2+ (Negative); RBC,Urine 1 /hpf (0-5); Specific Gravity,Urine 1.024 (1.001-1.035); Squamous Epithelial Cell,Urine 6 /hpf (0-4); Urobilinogen,Urine <2.0 mg/dL (<2.0); WBC,Urine 4 /hpf (0-5)
[2022-04-01] MEDS ORDERED: ONDANSETRON 4 MG/2 ML VIAL IVP PRN (00:34)
[2022-04-01] MEDS ORDERED: ACETAMINOPHEN TAB 325 MG TAB PO PRN (00:34)
[2022-04-01] MEDS ORDERED: NALOXONE 0.4 MG/ML 1 ML VIAL IV PRN (00:34)
[2022-04-01 00:38] LABS: Cocaine Screen,Urine Not Detected (NotDetected); Phencyclidine Screen,Urine Not Detected (NotDetected); Urn Cannabinoid Scrn Detected (NotDetected)
[2022-04-01 00:39] LABS: Amphetamine Screen,Urine Not Detected (NotDetected); Barbiturate Screen,Urine Not Detected (NotDetected); Benzodiazepines Screen,Urine Detected (NotDetected); Methadone Screen, Urine Not Detected (NotDetected); Opiate Screen,Urine Not Detected (NotDetected); Oxycodone Screen, Urine Not Detected (NotDetected); Tricyclic Antidepressant,Urine Not Detected (NotDetected)
[2022-04-01] MEDS ORDERED: LORazepam 2 MG/ML INJ IV PRN (00:39)
[2022-04-01] MEDS: LORazepam 1 MG/0.5 ML VIAL IV PRN ×10 (02:36→21:02)
[2022-04-01] MEDS: HEPARIN SODIUM,PORCINE/PF 5,000 UNIT/0.5 ML SYRINGE SQ SCH ×2 (08:11→16:55)
[2022-04-01] MEDS: FOLIC ACID 1 MG TAB PO SCH (08:12)
[2022-04-01] MEDS: FLUoxetine HCL 20 MG CAP PO SCH (08:12)
[2022-04-01] MEDS: PANTOPRAZOLE 40 MG TABLET PO SCH (08:14)
--- NOTE | 2022-04-01 12:30 | P.HPIM ---
History of Present Illness H&P Date: 04/01/22 Chief Complaint: Alcohol detox History of present illness; patient is a 31-year-old lady with past medical history of alcohol abuse who presented to the ER for alcohol detox. Patient had relapse over the last several days after being sober for 63 days because of partying during her sister marriage. Patient had been experiencing increasing anxiety tremors and hallucinations. Patient has no history of prior withdrawal seizures. Patient was complaining of visual hallucination and strange feeling on her skin. Patient was worked up in the ER of [facility], initial lab work showed a white count of 11, hemoglobin was 15.6. Sodium of 134, chloride 90, carbon dioxide 20, AST was 185, ALT was 92. Alcohol level was at 255. Patient was admitted to hospitalist service for alcohol detox. REVIEW OF SYSTEMS: CONSTITUTIONAL: No fever, no malaise, no fatigue. Complaining of anxiety and restlessness HEENT: No recent visual problems or hearing problems. Denied any sore throat. CARDIOVASCULAR: No chest pain, orthopnea, PND. Complaining of palpitations PULMONARY: No shortness of breath, no cough, no hemoptysis. GASTROINTESTINAL: No diarrhea, no nausea, no vomiting, no abdominal pain. NEUROLOGICAL: No headaches, no weakness, no numbness. HEMATOLOGICAL: Denies any bleeding or petechiae. GENITOURINARY: Denies any burning micturition, frequency, or urgency. MUSCULOSKELETAL/RHEUMATOLOGICAL: Denies any joint pain, swelling, or any muscle pain. ENDOCRINE: Denies any polyuria or polydipsia. The rest of the 14-point review of systems is negative. PHYSICAL EXAMINATION: GENERAL: The patient is alert and oriented x3, not in any acute distress. Well developed, well nourished. HEENT: Pupils are round and equally reacting to light. EOMI. No scleral icterus. No conjunctival pallor. Normocephalic, atraumatic. No pharyngeal erythema. No thyromegaly. CARDIOVASCULAR: S1 and S2 present. No murmurs, rubs, or gallops. PULMONARY: Chest is clear to auscultation, no wheezing or crackles. ABDOMEN: Soft, nontender, nondistended, normoactive bowel sounds. No palpable organomegaly. MUSCULOSKELETAL: No joint swelling or deformity. EXTREMITIES: No cyanosis, clubbing, or pedal edema. NEUROLOGICAL: Gross neurological examination did not reveal any focal deficits. SKIN: No rashes. Assessment Alcohol intoxication Alcohol detox Elevated LFTs Hyponatremia Plan; Monitor CBC Monitor CMP. Continue patient on CIWA protocol Continue thiamine and folic acid Patient counseled in detail regarding alcohol abuse, patient was given resources regarding outpatient follow-up for help with detox Resume home meds GI and DVT prophylaxis ordered : Past Medical History Past Medical History: No Reported History Additional Past Medical History / Comment(s): ETOH abuse with withdrawal tachycardia. History of Any Multi-Drug Resistant Organisms: None Reported Past Surgical History: No Surgical Hx Reported Past Anesthesia/Blood Transfusion Reactions: Unable to Obtain Additional Past Anesthesia/Blood Transfusion Reaction / Comment(s): Pt has never had anesthesia Past Psychological History: Anxiety, Depression Additional Psychological History / Comment(s): Pt usually lives alone, but her boyfriend has been staying lately. She is independent Smoking Status: Vaper Past Alcohol Use History: Daily, Occasional Additional Past Alcohol Use History / Comment(s): Pt drinks 1.5 fifths of vodka a day. She quit for 2 years. Past Drug Use History: Marijuana Additional Drug Use History / Comment(s): Marijuana daily, either smokes it or uses edibles. - Past Family History Mother Additional Family Medical History / Comment(s): Anxiety and depression. Father Family Medical History: No Reported History Medications and Allergies Home Medications Medication Instructions Recorded Confirmed Type FLUoxetine HCL [PROzac] 40 mg PO DAILY 01/16/22 04/01/22 History LORazepam [Ativan] 1 mg PO BID PRN 01/16/22 04/01/22 History Pantoprazole [Protonix] 40 mg PO DAILY 04/01/22 04/01/22 History Allergies Allergy/AdvReac Type Severity Reaction Status Date / Time No Known Allergies Allergy Verified 04/01/22 07:47 Physical Exam Vitals: Vital Signs Temp Pulse Pulse Resp BP BP BP 04/01/22 12:14 98.3 F 98 18 115/81 04/01/22 11:32 98.1 F 103 H 16 110/74 04/01/22 07:50 98.0 F 105 H 16 125/87 04/01/22 02:15 98.1 F 101 H 16 129/79 04/01/22 01:44 107 H 18 03/31/22 23:49 120 H 20 128/97 03/31/22 21:41 99 F 118 H 18 132/101 Pulse Ox 04/01/22 12:14 96 04/01/22 11:32 95 04/01/22 07:50 94 L 04/01/22 02:15 95 04/01/22 01:44 94 L 03/31/22 23:49 100 03/31/22 21:41 97 Intake and Output 03/31/22 04/01/22 04/01/22 22:59 06:59 14:59 Intake Total 118 Balance 118 Intake: Oral 118 Other: Voiding Method Toilet Toilet # Voids 2 Weight 56.699 kg 56.699 kg Results CBC & Chem 7: 03/31/22 22:11 03/31/22 22:11 Labs: Abnormal Lab Results - Last 24 Hours (Table) 03/31/22 03/31/22 04/01/22 Range/Units 22:11 22:11 00:07 WBC 11.0 H (3.8-10.6) k/uL Neutrophils # 9.1 H (1.3-7.7) k/uL Sodium 134 L (137-145) mmol/L Chloride 90 L (98-107) mmol/L Carbon Dioxide 20 L (22-30) mmol/L AST 185 H (14-36) U/L ALT 92 H (4-34) U/L Albumin 5.3 H (3.5-5.0) g/dL Urine Appearance Cloudy H (Clear) Urine Protein 2+ H (Negative) Urine Ketones 4+ H (Negative) Urine Blood Moderate H (Negative) Ur Squamous Epith Cells 6 H (0-4) /hpf Urine Bacteria Occasional H (None) /hpf Hyaline Casts 19 H (0-2) /lpf Urine Mucus Few H (None) /hpf U Benzodiazepines Scrn Detected H (NotDetected) U Marijuana (THC) Screen Detected H (NotDetected) Serum Alcohol 255 H* mg/dL Thrombosis Risk Factor Assmnt - Choose All That Apply Any of the Below Risk Factors Present?: No Other Risk Factors: No Other congenital or acquired thrombophilia - If yes, enter type in comment: No Thrombosis Risk Factor Assessment Level: Very Low Risk
[2022-04-01] MEDS: THIAMINE 100 MG TAB PO SCH (16:55)
[2022-04-02] MEDS: HEPARIN SODIUM,PORCINE/PF 5,000 UNIT/0.5 ML SYRINGE SQ SCH ×2 (00:15→09:05)
[2022-04-02] MEDS: LORazepam 1 MG/0.5 ML VIAL IV PRN ×3 (00:15→09:18)
[2022-04-02 07:32] LABS: Basophils % (A) 0 %; Eosinophils # (A) 0.1 k/uL (0-0.7); Eosinophils % (A) 3 %; HCT 38.3 % (34.0-46.0); HGB 12.9 gm/dL (11.4-16.0); Lymphocytes % (A) 24 %; MCH 30.5 pg (25.0-35.0); MCHC 33.6 g/dL (31.0-37.0); MCV 90.9 fL (80.0-100.0); Mean Platelet Volume 9.1; Monocytes # (A) 0.2 k/uL (0-1.0); Monocytes % (A) 6 %; Neutrophils # (A) 2.7 k/uL (1.3-7.7); Neutrophils % (A) 66 %; Platelet Count 151 k/uL (150-450); RBC 4.22 m/uL (3.80-5.40); RDW 11.4 % (11.5-15.5)
[2022-04-02 07:57] LABS: ALT 96 U/L (4-34); AST 145 U/L (14-36); African American GFR (CKD) >90 (>60 ml/min/1.73 sqM); Alkaline Phosphatase 66 U/L (38-126); Anion Gap 8 mmol/L; Blood Urea Nitrogen 9 mg/dL (7-17); Calcium 8.9 mg/dL (8.4-10.2); Carbon Dioxide 30 mmol/L (22-30); Chloride 95 mmol/L (98-107); Glucose 90 mg/dL (74-99); Lipase 223 U/L (23-300); Magnesium 1.9 mg/dL (1.6-2.3); Non-African American GFR(CKD) >90 (>60 ml/min/1.73 sqM); Potassium 3.5 mmol/L (3.5-5.1); Sodium 133 mmol/L (137-145); Total Bilirubin 1.2 mg/dL (0.2-1.3); Total Protein 6.1 g/dL (6.3-8.2)
[2022-04-02] MEDS: FLUoxetine HCL 20 MG CAP PO SCH (09:04)
[2022-04-02] MEDS: PANTOPRAZOLE 40 MG TABLET PO SCH (09:04)
[2022-04-02] MEDS: THIAMINE 100 MG TAB PO SCH (09:04)
[2022-04-02] MEDS: FOLIC ACID 1 MG TAB PO SCH (09:05)
[2022-04-02 09:28] VITALS: BP 110/85; PULSE 91; RESP 16; TEMP 97.7
--- NOTE | 2022-04-02 11:07 | P.DS ---
Providers Date of admission: 04/01/22 00:52 Expected date of discharge: 04/02/22 Attending physician: Mart Simmons MD Primary care physician: Alayna [facility] Course: Discharge diagnoses; Alcohol intoxication Alcohol detox Elevated LFTs Hyponatremia Plan; Patient counseled regarding alcohol cessation, will follow up outpatient with alcohol rehab Continue thiamine and folic acid Repeat LFTs outpatient Hospital course; patient is a 31-year-old lady with past medical history of alcohol abuse who presented to the ER for alcohol detox. Patient had relapse over the last several days after being sober for 63 days because of partying during her sister marriage. Patient had been experiencing increasing anxiety tremors and hallucinations. Patient has no history of prior withdrawal seizures. Patient was complaining of visual hallucination and strange feeling on her skin. Patient was worked up in the ER of [place], initial lab work showed a white count of 11, hemoglobin was 15.6. Sodium of 134, chloride 90, carbon dioxide 20, AST was 185, ALT was 92. Alcohol level was at 255. Patient was admitted to hospitalist service for alcohol detox. While in the hospital, patient CIWA scores were low, patient was feeling much better. No episode of hallucination. Patient be discharged to follow-up outpatient with PCP PHYSICAL EXAMINATION: GENERAL: The patient is alert and oriented x3, not in any acute distress. Well developed, well nourished. HEENT: Pupils are round and equally reacting to light. EOMI. No scleral icterus. No conjunctival pallor. Normocephalic, atraumatic. No pharyngeal erythema. No thyromegaly. CARDIOVASCULAR: S1 and S2 present. No murmurs, rubs, or gallops. PULMONARY: Chest is clear to auscultation, no wheezing or crackles. ABDOMEN: Soft, nontender, nondistended, normoactive bowel sounds. No palpable organomegaly. MUSCULOSKELETAL: No joint swelling or deformity. EXTREMITIES: No cyanosis, clubbing, or pedal edema. NEUROLOGICAL: Gross neurological examination did not reveal any focal deficits. SKIN: No rashes. Patient Condition at Discharge: Fair Plan - Discharge Summary Discharge Rx Participant: Yes New Discharge Prescriptions: New Folic Acid 1 mg PO DAILY #30 tab Thiamine [Vitamin B-1] 100 mg PO DAILY #30 tab Continue FLUoxetine HCL [PROzac] 40 mg PO DAILY Pantoprazole [Protonix] 40 mg PO DAILY LORazepam [Ativan] 1 mg PO BID PRN PRN Reason: Anxiety Discharge Medication List FLUoxetine HCL [PROzac] 40 mg PO DAILY 01/16/22 [History] LORazepam [Ativan] 1 mg PO BID PRN 01/16/22 [History] Pantoprazole [Protonix] 40 mg PO DAILY 04/01/22 [History] Folic Acid 1 mg PO DAILY #30 tab 04/02/22 [Rx] Thiamine [Vitamin B-1] 100 mg PO DAILY #30 tab 04/02/22 [Rx] Follow up Appointment(s)/Referral(s): None,Stated [REFERRING] - 1-2 days Discharge/Stand Alone Forms: AA Meetings [place] [place], Community Resources, Outpatient Counseling, Inp Substance Abuse Facilities, Personal Hem Inspector
== END 2022-04-02 11:58 | disposition home or self-care (01) | DRG 897 ==
LOC: EC 19:36 → 3SCARD 04-01 00:52
PROVIDERS: ADMIT Internal Medicine; ATTEND Internal Medicine
DX: F10.129 Alcohol abuse with intoxication, unspecified (principal); E87.1 Hypo-osmolality and hyponatremia; F32.A Depression, unspecified; R00.0 Tachycardia, unspecified; F41.9 Anxiety disorder, unspecified; Z79.899 Other long term (current) drug therapy; R94.5 Abnormal results of liver function studies; Y90.8 Blood alcohol level of 240 mg/100 ml or more; Z60.2 Problems related to living alone; Z28.311 Partially vaccinated for COVID-19; Z28.21 Immunization not carried out because of patient refusal; Z81.8 Family history of other mental and behavioral disorders
CPT/HCPCS: 36415; 71045; 80053; 80306; 80320; 81001; 81025; 83690; 83735; 84100; 85025; 85610; 96365; 96366; 96375; 96376; 99285

== ENCOUNTER 2022-04-29 20:10 | Inpatient (IN) | payer OTHER ==
[2022-04-29] MEDS ORDERED: SODIUM CHLORIDE 0.9% 1,000 ML IV ONE (21:35)
--- NOTE | 2022-04-29 22:08 | ED ---
General Adult HPI - General Chief complaint: Alcohol Stated complaint: Alcohol Time Seen by Provider: 04/29/22 21:35 Source: patient, RN notes reviewed, old records reviewed Mode of arrival: ambulatory Limitations: no limitations - History of Present Illness Initial comments: 31-year-old female presenting for evaluation of alcohol use. She states she is drinking approximately half gallon a day of vodka. She has had history of previous alcohol withdrawal seizure. She states her last drink was last night proximally 24 hours ago. She states she has plans to abstain from alcohol and detox. - Related Data Home Medications Medication Instructions Recorded Confirmed FLUoxetine HCL [PROzac] 40 mg PO DAILY 01/16/22 04/01/22 LORazepam [Ativan] 1 mg PO BID PRN 01/16/22 04/01/22 Pantoprazole [Protonix] 40 mg PO DAILY 04/01/22 04/01/22 Previous Rx's Medication Instructions Recorded Folic Acid 1 mg PO DAILY #30 tab 04/02/22 Thiamine [Vitamin B-1] 100 mg PO DAILY #30 tab 04/02/22 Allergies Allergy/AdvReac Type Severity Reaction Status Date / Time No Known Allergies Allergy Verified 04/01/22 07:47 Review of Systems ROS Statement: Those systems with pertinent positive or pertinent negative responses have been documented in the HPI. ROS Other: All systems not noted in ROS Statement are negative. Past Medical History Past Medical History: No Reported History Additional Past Medical History / Comment(s): ETOH abuse with withdrawal tachycardia. History of Any Multi-Drug Resistant Organisms: None Reported Past Surgical History: No Surgical Hx Reported Past Anesthesia/Blood Transfusion Reactions: Unable to Obtain Additional Past Anesthesia/Blood Transfusion Reaction / Comment(s): Pt has never had anesthesia Past Psychological History: Anxiety, Depression Smoking Status: Former smoker Past Alcohol Use History: Daily, Occasional Past Drug Use History: None Reported - Past Family History Mother Additional Family Medical History / Comment(s): Anxiety and depression. Father Family Medical History: No Reported History General Exam Limitations: no limitations General appearance: alert, in no apparent distress Head exam: Present: atraumatic, normocephalic Eye exam: Present: normal appearance, PERRL ENT exam: Present: mucous membranes dry Neck exam: Present: normal inspection. Absent: tenderness, meningismus Respiratory exam: Present: normal lung sounds bilaterally. Absent: respiratory distress, wheezes Cardiovascular Exam: Present: normal rhythm, tachycardia GI/Abdominal exam: Present: soft. Absent: distended, tenderness Extremities exam: Present: normal inspection, normal capillary refill. Absent: pedal edema Neurological exam: Present: alert, oriented X3, CN II-XII intact. Absent: motor sensory deficit Psychiatric exam: Present: depressed Skin exam: Present: warm, dry, intact Course Vital Signs 04/29/22 20:19 Temperature 98.3 F Pulse Rate 128 H Respiratory 16 Rate Blood Pressure 135/94 O2 Sat by Pulse 98 Oximetry EKG Findings - EKG Comments: EKG Findings:: EKG: Sinus tachycardia rate of 114, IA interval 104, QRS duration 87, QTC 384 - EKG Results: EKG: interpreted by JOSE Medical Decision Making - Medical Decision Making 31-year-old female with presenting with alcohol intoxication, history of alcohol withdrawal seizure. Alcohol level is 289. Patient will be monitored during detox. She's placed on Ativan according to CIWA. She does have elevated hemoglobin which is likely secondary to hemoconcentration and dehydration. She's given IV fluid. Normal Electrolytes. - Lab Data Result diagrams: 04/29/22 21:46 04/29/22 21:46 Lab Results 04/29/22 04/29/22 Range/Units 21:46 21:46 WBC 7.6 (3.8-10.6) k/uL RBC 5.48 H (3.80-5.40) m/uL Hgb 16.9 H D (11.4-16.0) gm/dL Hct 50.1 H (34.0-46.0) % MCV 91.3 (80.0-100.0) fL MCH 30.9 (25.0-35.0) pg MCHC 33.8 (31.0-37.0) g/dL RDW 12.3 (11.5-15.5) % Plt Count 304 D (150-450) k/uL MPV 8.5 Neutrophils % 56 % Lymphocytes % 36 % Monocytes % 3 % Eosinophils % 1 % Basophils % 1 % Neutrophils # 4.3 (1.3-7.7) k/uL Lymphocytes # 2.7 (1.0-4.8) k/uL Monocytes # 0.3 (0-1.0) k/uL Eosinophils # 0.1 (0-0.7) k/uL Basophils # 0.1 (0-0.2) k/uL Sodium 144 (137-145) mmol/L Potassium 4.4 (3.5-5.1) mmol/L Chloride 101 (98-107) mmol/L Carbon Dioxide 21 L (22-30) mmol/L Anion Gap 22 mmol/L BUN 8 (7-17) mg/dL Creatinine 0.60 (0.52-1.04) mg/dL Est GFR (CKD-EPI)AfAm >90 (>60 ml/min/1.73 sqM) Est GFR (CKD-EPI)NonAf >90 (>60 ml/min/1.73 sqM) Glucose 88 (74-99) mg/dL Calcium 9.6 (8.4-10.2) mg/dL Magnesium 2.1 (1.6-2.3) mg/dL Total Bilirubin 0.5 (0.2-1.3) mg/dL AST 35 (14-36) U/L ALT 26 (4-34) U/L Alkaline Phosphatase 81 (38-126) U/L Total Protein 8.8 H (6.3-8.2) g/dL Albumin 5.6 H (3.5-5.0) g/dL Serum Alcohol 289 H* mg/dL Disposition Clinical Impression: Withdrawal symptoms, alcohol, Alcoholic intoxication Disposition: ADMITTED IP TO THIS HOSP Condition: Stable Is patient prescribed a controlled substance at d/c from ED?: No Referrals: Alayna Gar MD [Primary Care Provider] - 1-2 days Time of Disposition: 22:49
[2022-04-29 22:12] LABS: ALT 26 U/L (4-34); AST 35 U/L (14-36); African American GFR (CKD) >90 (>60 ml/min/1.73 sqM); Albumin 5.6 g/dL (3.5-5.0); Alkaline Phosphatase 81 U/L (38-126); Anion Gap 22 mmol/L; Blood Urea Nitrogen 8 mg/dL (7-17); Calcium 9.6 mg/dL (8.4-10.2); Carbon Dioxide 21 mmol/L (22-30); Chloride 101 mmol/L (98-107); Glucose 88 mg/dL (74-99); Magnesium 2.1 mg/dL (1.6-2.3); Non-African American GFR(CKD) >90 (>60 ml/min/1.73 sqM); Potassium 4.4 mmol/L (3.5-5.1); Sodium 144 mmol/L (137-145); Total Bilirubin 0.5 mg/dL (0.2-1.3); Total Protein 8.8 g/dL (6.3-8.2)
[2022-04-29 22:19] LABS: Alcohol 289 mg/dL
[2022-04-29 22:22] LABS: Basophils # (A) 0.1 k/uL (0-0.2); Basophils % (A) 1 %; Eosinophils # (A) 0.1 k/uL (0-0.7); Eosinophils % (A) 1 %; HCT 50.1 % (34.0-46.0); Lymphocytes # (A) 2.7 k/uL (1.0-4.8); Lymphocytes % (A) 36 %; MCH 30.9 pg (25.0-35.0); MCHC 33.8 g/dL (31.0-37.0); MCV 91.3 fL (80.0-100.0); Mean Platelet Volume 8.5; Monocytes # (A) 0.3 k/uL (0-1.0); Monocytes % (A) 3 %; Neutrophils # (A) 4.3 k/uL (1.3-7.7); Neutrophils % (A) 56 %; RBC 5.48 m/uL (3.80-5.40); RDW 12.3 % (11.5-15.5); WBC 7.6 k/uL (3.8-10.6)
[2022-04-29 22:32] LABS: HGB 16.9 gm/dL (11.4-16.0)
[2022-04-29 22:33] LABS: Platelet Count 304 k/uL (150-450)
[2022-04-29] MEDS ORDERED: NALOXONE 0.4 MG/ML 1 ML VIAL IV PRN (22:45)
[2022-04-29] MEDS ORDERED: THIAMINE 100 MG/ML 2 ML VIAL IM STA (22:48)
[2022-04-29] MEDS ORDERED: LORazepam 2 MG/ML INJ IV PRN ×3 (22:48)
[2022-04-30] MEDS: SODIUM CHLORIDE 0.9% 1,000 ML IV SCH ×2 (00:30→08:46)
[2022-04-30 08:46] VITALS: RESP 18
[2022-04-30] MEDS ORDERED: THIAMINE 100 MG TAB PO SCH (09:00)
[2022-04-30] MEDS ORDERED: ACETAMINOPHEN TAB 325 MG TAB PO PRN (09:22)
[2022-04-30] MEDS ORDERED: ONDANSETRON 4 MG/2 ML VIAL IVP PRN (09:22)
[2022-04-30] MEDS ORDERED: PANTOPRAZOLE 40 MG TABLET PO SCH (09:30)
[2022-04-30] MEDS ORDERED: FLUoxetine HCL 20 MG CAP PO SCH (09:30)
[2022-04-30] MEDS ORDERED: FOLIC ACID 1 MG TAB PO SCH (09:30)
--- NOTE | 2022-04-30 12:48 | P.HPIM ---
History of Present Illness H&P Date: 04/30/22 This is a 31-year-old female who follows with Dr. Alayna Gar, Medical history significant for chronic alcohol abuse reports drinking half gallon of vodka daily. Patient also reports marijuana use daily, She is a former daily smoker. Also history of anxiety depression. Patient resents the emergency room with concern for alcohol use and wanted to detox. She was sober for a few months and relapsed due to life stressors. She is optimistic about continuing to quit alcohol. She has gone to rehab at [place] before and earlier this year was sober for 6 months before relapsing. She is currently not working but is undergoing application process and hoping to start working soon. Patient is a history of alcohol withdrawal seizure she reports this was a few days ago when she was admitted to [facility]. Patient would like to detox from alcohol this time. She has an alcohol level of 289 on admission. White count 7.6, hemoglobin 16.9. Patient is afebrile, she is tachycardic at 112, blood pressure 135/90. She is admitted to the hospital for acute alcohol withdrawal and monitoring for acute alcohol withdrawal seizure and DTs, she started on Ativan CIWA protocol and is receiving IV normal saline at 100 mls per hour. Patient was monitored overnight and received a dose of oral ativan she has not received any ativan today. Reports having some tremors and nausea, sweats last night but none currently today. REVIEW OF SYSTEMS: CONSTITUTIONAL: No fever, no malaise, no fatigue. HEENT: No recent visual problems or hearing problems. Denied any sore throat. CARDIOVASCULAR: No chest pain, orthopnea, PND, no palpitations, no syncope. PULMONARY: No shortness of breath, no cough, no hemoptysis. GASTROINTESTINAL: No diarrhea, no nausea, no vomiting, no abdominal pain. NEUROLOGICAL: No headaches, no weakness, no numbness. HEMATOLOGICAL: Denies any bleeding or petechiae. GENITOURINARY: Denies any burning micturition, frequency, or urgency. MUSCULOSKELETAL/RHEUMATOLOGICAL: Denies any joint pain, swelling, or any muscle pain. Reports some intermittent muscle tremors. ENDOCRINE: Denies any polyuria or polydipsia. The rest of the 14-point review of systems is negative. PHYSICAL EXAMINATION: GENERAL: The patient is alert and oriented x3, not in any acute distress. Well developed, well nourished. HEENT: Pupils are round and equally reacting to light. EOMI. No scleral icterus. No conjunctival pallor. Normocephalic, atraumatic. No pharyngeal erythema. No thyromegaly. CARDIOVASCULAR: S1 and S2 present. No murmurs, rubs, or gallops. PULMONARY: Chest is clear to auscultation, no wheezing or crackles. ABDOMEN: Soft, nontender, nondistended, normoactive bowel sounds. No palpable organomegaly. MUSCULOSKELETAL: No joint swelling or deformity. EXTREMITIES: No cyanosis, clubbing, or pedal edema. NEUROLOGICAL: Gross neurological examination did not reveal any focal deficits. SKIN: No rashes. Assessment plan Assessment Acute alcohol intoxication Acute alcohol withdrawal History of alcohol withdrawal seizure History of anxiety/depression Chronic alcohol abuse Substance abuse disorder Marijuana use Former tobacco use GI Prophylaxis DVT Prophylaxis Full Code Plan Continue with IV fluids Patient was started on oral CIWA protocol Monitor patient for acute alcohol withdrawal/DTs Resume appropriate home medications If patient continues to do well today with no further signs of tremors patient can be discharged home later today from the ER. No reports of seizure like activity this admission The impression and plan of care has been dictated by Laury Santos Nurse Practitioner as directed. Dr. Vee MD I have performed a history and physical examination and medical decision making of this patient, discussed the same with the dictator, and agree with the dictators assessment and plan as written, documented as a scribe. Based on total visit time, I have performed more than 50% of this visit. Past Medical History Past Medical History: No Reported History Additional Past Medical History / Comment(s): ETOH abuse with withdrawal tachycardia. History of Any Multi-Drug Resistant Organisms: None Reported Past Surgical History: No Surgical Hx Reported Past Anesthesia/Blood Transfusion Reactions: Unable to Obtain Additional Past Anesthesia/Blood Transfusion Reaction / Comment(s): Pt has never had anesthesia Past Psychological History: Anxiety, Depression Smoking Status: Former smoker Past Alcohol Use History: Daily, Occasional Past Drug Use History: None Reported - Past Family History Mother Additional Family Medical History / Comment(s): Anxiety and depression. Father Family Medical History: No Reported History Medications and Allergies Home Medications Medication Instructions Recorded Confirmed Type FLUoxetine HCL [PROzac] 40 mg PO DAILY 01/16/22 04/30/22 History LORazepam [Ativan] 1 mg PO BID PRN 01/16/22 04/30/22 History Pantoprazole [Protonix] 40 mg PO DAILY 04/01/22 04/30/22 History Folic Acid 1 mg PO DAILY #30 tab 04/02/22 04/30/22 Rx Ondansetron [Zofran] 4 mg PO Q8HR PRN #6 tab 04/30/22 Rx Thiamine [Vitamin B-1] 100 mg PO DAILY #30 tab 04/30/22 Rx chlordiazePOXIDE HCl [Librium] 0 mg PO DIRECTED 3 Days #6 04/30/22 Rx capsule Allergies Allergy/AdvReac Type Severity Reaction Status Date / Time No Known Allergies Allergy Verified 04/30/22 08:20 Physical Exam Vitals: Vital Signs Temp Pulse Resp BP Pulse Ox 04/30/22 08:43 18 135/90 98 04/30/22 06:46 112 H 15 138/93 100 04/29/22 20:19 98.3 F 128 H 16 135/94 98 Intake and Output 04/29/22 04/30/22 04/30/22 22:59 06:59 14:59 Other: Weight 63.503 kg Results CBC & Chem 7: 04/29/22 21:46 04/29/22 21:46 Labs: Abnormal Lab Results - Last 24 Hours (Table) 04/29/22 04/29/22 Range/Units 21:46 21:46 RBC 5.48 H (3.80-5.40) m/uL Hgb 16.9 H D (11.4-16.0) gm/dL Hct 50.1 H (34.0-46.0) % Carbon Dioxide 21 L (22-30) mmol/L Total Protein 8.8 H (6.3-8.2) g/dL Albumin 5.6 H (3.5-5.0) g/dL Serum Alcohol 289 H* mg/dL Assessment and Plan Time with Patient: Less than 30
[2022-04-30 13:47] VITALS: BP 121/97; PULSE 110; TEMP 98
--- NOTE | 2022-05-02 21:57 | P.DS ---
Providers Date of admission: 04/29/22 22:45 Attending physician: Edie Vo Primary care physician: Alayna Gar Hospital Course: Final Diagnosis Acute alcohol intoxication Acute alcohol withdrawal History of alcohol withdrawal seizure History of anxiety/depression Chronic alcohol abuse Substance abuse disorder Marijuana use Former tobacco use Full Code Discharge Disposition Patient is stable for discharge home. Guarded prognosis and patient will be d ischarged on oral librium taper. Patient has appointment with her primary care Dr. Gar today as well. She would like to be discharged home and has not had any seizure activity or DTs this admission. Tremors have resolved. Hospital Course This is a 31 year old female with history of marijuana use who presents with acute alcohol intoxication serum alcohol 289 on admission. Admits to drinking half gallon of vodka a day. Prior to this episode patient was sober for 3 months she verbalizes a desire to quit alcohol. Patient was started on oral ativan protocol as she did present with tremors and also sweating. She improved with monitoring and hydration. Last dose of ativan at 1000 pm last night and she has not required any ativan today. She is alert x 3, no tremors noted on exam, currently denies nausea, vomiting, no hallucinations, no headache. She would like to be discharged home and will be given a script for librium taper. Patient is afebrile, heart rate 110, blood pressure 121/97, 98% room air. Lungs are clear, S1 S2 auscultated. Abdomen is soft and nontender. Patient will be discharged home. Please see medical H and P for additional information. Please see medication reconciliation for a list of current medication. Thank you for allowing us to participate in the care of this patient. The impression and plan of care has been dictated by Laury Santos, Nurse Practitioner as directed. Dr. Vee MD I have performed a history and physical examination and medical decision making of this patient, discussed the same with the dictator, and agree with the dictators assessment and plan as written, documented as a scribe. Based on total visit time, I have performed more than 50% of this visit. Patient Condition at Discharge: Stable Plan - Discharge Summary New Discharge Prescriptions: New chlordiazePOXIDE HCl [Librium] 0 mg PO DIRECTED 3 Days #6 capsule Thiamine [Vitamin B-1] 100 mg PO DAILY #30 tab Ondansetron [Zofran] 4 mg PO Q8HR PRN #6 tab PRN Reason: Nausea Continue FLUoxetine HCL [PROzac] 40 mg PO DAILY Pantoprazole [Protonix] 40 mg PO DAILY LORazepam [Ativan] 1 mg PO BID PRN PRN Reason: Anxiety Folic Acid 1 mg PO DAILY #30 tab Discharge Medication List FLUoxetine HCL [PROzac] 40 mg PO DAILY 01/16/22 [History] LORazepam [Ativan] 1 mg PO BID PRN 01/16/22 [History] Pantoprazole [Protonix] 40 mg PO DAILY 04/01/22 [History] Folic Acid 1 mg PO DAILY #30 tab 04/02/22 [Rx] Ondansetron [Zofran] 4 mg PO Q8HR PRN #6 tab 04/30/22 [Rx] Thiamine [Vitamin B-1] 100 mg PO DAILY #30 tab 04/30/22 [Rx] chlordiazePOXIDE HCl [Librium] 0 mg PO DIRECTED 3 Days #6 capsule 04/30/22 [Rx] Follow up Appointment(s)/Referral(s): Alayna Gar MD [Primary Care Provider] - 1-2 days Patient Instructions/Handouts: Alcohol Intoxication (DC), Alcohol Withdrawal (DC) Activity/Diet/Wound Care/Special Instructions: Oral librium taper for 3 days Recommend to see Dr. Alayna Gar in 1 to 2 days after discharge Recommend total alcohol cessation Discharge Disposition: HOME SELF-CARE
== END 2022-04-30 13:48 | disposition home or self-care (01) | DRG 897 ==
LOC: EC 20:10 → 4SSUR 22:45
PROVIDERS: ADMIT Hospitalist; ATTEND Hospitalist
PROC: HZ2ZZZZ Detoxification Services for Substance Abuse Treatment (ICD-10-PCS; principal; 2022-04-29)
DX: F10.229 Alcohol dependence with intoxication, unspecified (principal); E86.0 Dehydration; F10.239 Alcohol dependence with withdrawal, unspecified; F32.A Depression, unspecified; R00.0 Tachycardia, unspecified; F41.9 Anxiety disorder, unspecified; Y90.8 Blood alcohol level of 240 mg/100 ml or more; Z79.899 Other long term (current) drug therapy; Z87.891 Personal history of nicotine dependence; Z71.41 Alcohol abuse counseling and surveillance of alcoholic
CPT/HCPCS: 36415; 80053; 80320; 83735; 85025; 93005

== ENCOUNTER 2023-09-11 19:42 | Inpatient (IN) | payer OTHER ==
[2023-09-11] MEDS ORDERED: miSOPROStoL 200 MCG TAB PO PRN (20:03)
[2023-09-11] MEDS ORDERED: OXYTOCIN 10 UNIT/ML 1 ML VIAL IM PRN (20:03)
[2023-09-11] MEDS ORDERED: METHYLERGONOVINE 0.2 MG/ML 1 ML AMP IM PRN (20:03)
[2023-09-11] MEDS ORDERED: CARBOPROST TROMETHAMINE 250 MCG/ML 1 ML AMP IM PRN (20:03)
[2023-09-11] MEDS ORDERED: TRANEXAMIC 1,000 MG/100ML-NACL 1,000 MG in EMPTY BAG 1 BAG IV PRN (20:03)
[2023-09-11] MEDS: LACTATED RINGERS 1,000 ML IV SCH (20:05)
[2023-09-11] MEDS: CITRIC ACID-SODIUM CITRATE 15 ML CUP PO ONE (20:22)
[2023-09-11 20:46] LABS: Basophils % (A) 0 %; Eosinophils # (A) 0.1 k/uL (0-0.7); Eosinophils % (A) 1 %; HCT 33.4 % (34.0-46.0); HGB 11.1 gm/dL (11.4-16.0); Lymphocytes # (A) 1.7 k/uL (1.0-4.8); Lymphocytes % (A) 19 %; MCH 29.9 pg (25.0-35.0); MCHC 33.1 g/dL (31.0-37.0); MCV 90.3 fL (80.0-100.0); Mean Platelet Volume 11.3; Monocytes # (A) 0.5 k/uL (0-1.0); Monocytes % (A) 6 %; Neutrophils # (A) 6.7 k/uL (1.3-7.7); Neutrophils % (A) 73 %; Platelet Count 201 k/uL (150-450); RDW 13.5 % (11.5-15.5); WBC 9.2 k/uL (3.8-10.6)
[2023-09-11] MEDS ORDERED: KETOROLAC 15 MG/ML 1 ML VIAL ONE (20:49)
[2023-09-11] MEDS ORDERED: OXYTOCIN 30 UNITS/500 ML NS BAG IV ONE (20:49)
[2023-09-11] MEDS ORDERED: PHENYLEPHRINE-0.9% NACL SYG 1,000 MCG/10 ML SYRINGE ONE (20:49)
[2023-09-11] MEDS ORDERED: MORPHINE SULFATE (PF) 0.3 MG/0.3 ML SYR ONE (20:49)
[2023-09-11 21:03] LABS: ALT 12 U/L (4-34); AST 22 U/L (14-36); African American GFR (CKD) >90 (>60 ml/min/1.73 sqM); Blood Urea Nitrogen 11 mg/dL (7-17); LDH 187 U/L (120-246); Non-African American GFR(CKD) >90 (>60 ml/min/1.73 sqM); Uric Acid 4.6 mg/dL (3.7-7.4)
[2023-09-11] MEDS ORDERED: METOCLOPRAMIDE 5 MG/ML 2 ML VIAL IVP PRN ×2 (21:15→21:36)
[2023-09-11] MEDS ORDERED: ONDANSETRON 4 MG/2 ML VIAL IVP PRN ×2 (21:15→21:36)
[2023-09-11] MEDS ORDERED: diphenhydrAMINE 50 MG/ML 1 ML VIAL IVP PRN ×2 (21:15→21:36)
[2023-09-11] MEDS ORDERED: NALOXONE 0.4 MG/ML 1 ML VIAL IV PRN ×2 (21:15→21:36)
[2023-09-11] MEDS ORDERED: HYDROmorphone 0.5 MG/0.5 ML SYRINGE IVP PRN (21:15)
[2023-09-11] MEDS ORDERED: KETOROLAC 15 MG/ML 1 ML VIAL IVP PRN (21:15)
[2023-09-11] MEDS ORDERED: NALBUPHINE 10 MG/ML (10 ML MDV) IV PRN (21:15)
[2023-09-11 21:22] LABS: Appearance,Urine Clear (Clear); Bilirubin,Urine Negative (Negative); Blood,Urine Negative (Negative); Color,Urine Light Yellow; Glucose,Urine (UA) Negative (Negative); Ketones,Urine Negative (Negative); Leukocyte Esterase,Urine Negative (Negative); Nitrite,Urine Negative (Negative); Protein,Urine Trace (Negative); Specific Gravity,Urine 1.028 (1.001-1.035); Urobilinogen,Urine <2.0 mg/dL (<2.0)
[2023-09-11 21:33] LABS: Creatinine,Urine Random 144.3 mg/dL; Protein/Creatinine Ratio,Urine 0.111
[2023-09-11 21:34] LABS: Amphetamine Screen,Urine Not Detected (NotDetected); Barbiturate Screen,Urine Not Detected (NotDetected); Benzodiazepines Screen,Urine Detected (NotDetected); Cocaine Screen,Urine Not Detected (NotDetected); Methadone Screen, Urine Not Detected (NotDetected); Opiate Screen,Urine Not Detected (NotDetected); Oxycodone Screen, Urine Not Detected (NotDetected); Phencyclidine Screen,Urine Not Detected (NotDetected); Tricyclic Antidepressant,Urine Not Detected (NotDetected); Urn Cannabinoid Scrn Detected (NotDetected)
[2023-09-11] MEDS ORDERED: diphenhydrAMINE 25 MG CAP PO PRN (21:36)
[2023-09-11] MEDS ORDERED: diphenhydrAMINE 50 MG CAP PO PRN (21:36)
[2023-09-11] MEDS ORDERED: SIMETHICONE 80 MG CHEWABLE PO PRN (21:36)
[2023-09-11] MEDS ORDERED: ZOLPIDEM 5 MG TAB PO PRN (21:36)
--- NOTE | 2023-09-11 21:48 | P.OP ---
Date of Procedure: 09/11/23 Preoperative Diagnosis: IUP at 40-2/7 weeks, gestational hypertension, vaginal bleeding, category 2 heart tones Postoperative Diagnosis: Same Anesthesia: spinal Surgeon: Shannon Soares Customer Resource Specialist #1: Dianna Erickson Estimated Blood Loss (ml): 850 IV fluids (ml): 500 Urine output (ml): 50 (clear yellow) Pathology: other (Placenta) Condition: stable Disposition: observation Indications for Procedure: 32-year-old 1 para 0 at 40-2/7 weeks that presents with overt bright red vaginal bleeding. Operative Findings: Viable male delivered at 2106, weight of 7 pounds 8 ounces, Apgars of 9 and 9 at 1 and 5 minutes respectively. Upon entering the uterus collected blood clot is appreciated. Meconium stained fluid is noted. Multiple anterior uterine fibroids are appreciated Description of Procedure: Patient was taken back to the operating suite where spinal anesthesia was obtained by the anesthesia department. heart tones were monitored throughout the procedure and remained category 2. Patient was placed in a supine position prepped and draped in the normal sterile fashion. Campos catheter was placed in the room prior to presentation to the operating room. A Pfannenstiel skin incision was made with a scalpel and carried through to the underlying layer of fascia. The fascia was incised the midline and extended laterally. The superior aspect of the fascial incision was then grasped with Shannon clamps, elevated and the underlying rectus muscle was dissected off sharply. The inferior aspect of the fascial incision was then grasped with Ko padma clamps, elevated and the underlying rectus muscle was dissected off sharply. The rectus muscles were in the midline the peritoneum was identified and entered. Bladder blade was inserted into the pelvis. Hysterotomy incision was made meconium stained fluid was appreciated the was encountered in a vertex presentation and delivered in the usual fashion. The umbilical cord was doubly clamped and cut, spontaneous cry was appreciated the was handed off to waiting RN. The placenta was then delivered manually a large collected clot was appreciated upon delivery of the as well. The uterus was delivered from the abdomen and cleared of all clots and debris. The uterine incision was closed with 0 Vicryl in a running locked fashion. A second imbricating suture was performed. Hemostasis was noted. The uterus was returned to the abdomen the hysterotomy incision was inspected and hemostasis was appreciated. The gutters were cleared of all clots and debris. The peritoneum was then loosely reapproximated. The rectus muscles were inspected and any points of bleeding were made hemostatic with the Bovie. The fascia was then closed with 0 Vicryl in a running fashion from 1 lateral edge to the other. The subcutaneous tissue was irrigated found to be hemostatic and closed with 3-0 Vicryl in a running fashion. Skin was closed with 4-0 Vicryl in a subcuticular fashion. Steri-Strips and sterile dressings were applied. All counts were noted be correct x 2 at the end of the procedure. Patient and tolerated delivery well and are resting comfortably.
--- NOTE | 2023-09-11 21:51 | P.HPOB ---
History of Present Illness H&P Date: 09/11/23 Chief Complaint: IUP at 40-2/7 weeks, vaginal bleeding This is a 32-year-old G3, P0020 at 40-2/7 weeks that presents to labor and delivery with complaints of hamlet gush of vaginal bleeding that happened at 1900. Patient in addition notes decreased movement around the time of bleeding. Patient denies contractions. She states she has been receiving routine care which has been essentially uncomplicated. Initial blood pressure elevated 140s over 90s, highest 159/101 On blood work this patient is a blood type of B+, rubella status immune, RPR is nonreactive, hepatitis B surface engine is negative, HIV is negative, grew beta strep culture was positive. [employer] history #1, 2008 voluntary termination of , medication #2, 2012 voluntary termination of with a suction dilation and curettage #3 current Review of Systems Constitutional: Denies chills, Denies fatigue, Denies fever Ears, nose, mouth and throat: Denies headache Cardiovascular: Reports leg edema Respiratory: Denies dyspnea Gastrointestinal: Denies constipation, Denies diarrhea, Denies nausea, Denies vomiting Genitourinary: Reports Past Medical History Past Medical History: No Reported History Additional Past Medical History / Comment(s): ETOH abuse with withdrawal tachycardia. History of Any Multi-Drug Resistant Organisms: None Reported Past Surgical History: No Surgical Hx Reported Past Anesthesia/Blood Transfusion Reactions: Unable to Obtain Additional Past Anesthesia/Blood Transfusion Reaction / Comment(s): Pt has never had anesthesia Smoking Status: Never smoker - Past Family History Mother Additional Family Medical History / Comment(s): Anxiety and depression. Father Family Medical History: No Reported History Medications and Allergies Home Medications Medication Instructions Recorded Confirmed Type FLUoxetine HCL [PROzac] 40 mg PO DAILY 01/16/22 09/11/23 History Pantoprazole [Protonix] 40 mg PO DAILY 04/01/22 09/11/23 History Ondansetron [Zofran] 4 mg PO Q8HR PRN #6 tab 04/30/22 09/11/23 Rx Allergies Allergy/AdvReac Type Severity Reaction Status Date / Time No Known Allergies Allergy Verified 09/11/23 19:44 Exam Osteopathic Statement: *. No significant issues noted on an osteopathic structural exam other than those noted in the History and Physical/Consult. Intake and Output 09/11/23 09/11/23 09/11/23 06:59 14:59 22:59 Other: Weight 94.347 kg In general this is a well-nourished well-developed female in no acute distress, breathing is noted to be nonlabored, heart has a regular rate and rhythm, abdomen is gravid, heart tones are noted to be category 2, she is not neno. On cervical exam she is 1/80/-3 station vaginal bleeding is appreciated. Results Result Diagrams: 09/11/23 20:18 09/11/23 20:18 Assessment and Plan (1) Post-dates Current Visit: Yes Status: Acute Code(s): O48.0 - POST-TERM SNOMED Code(s): 59360785 (2) Vaginal bleeding Current Visit: Yes Status: Acute Code(s): N93.9 - ABNORMAL UTERINE AND VAGINAL BLEEDING, UNSPECIFIED SNOMED Code(s): 246726685 (3) Gestational HTN Current Visit: Yes Status: Acute Code(s): O13.9 - GESTATIONAL HTN W/O SIGNIFICANT PROTEINURIA, UNSP TRIMESTER SNOMED Code(s): 28197692 Plan: 32-year-old 1 para 0 at 40 2/7 weeks that presents with complaints of vaginal bleeding around 1900. She has had continued vaginal bleeding since p resentation to triage and my evaluation in labor and delivery suite. Recommendation for primary low-transverse section given vaginal bleeding and category 2 heart tones. Patient states understanding of plan anesthesia is available, on the floor. Surgeries reviewed and risks are discussed. Questions are answered.
[2023-09-11 23:09] LABS: INR 0.9 (<1.2); Partial Thromboplastin Time 22.1 sec (22.0-30.0); Prothrombin Time 9.8 sec (10.0-12.5)
[2023-09-11] MEDS: ACETAMINOPHEN IV (For NPO) 1,000 MG in EMPTY BAG 1 BAG IVPB SCH (23:14)
[2023-09-11] MEDS: OXYTOCIN 30 UNITS/500 ML NS 30 UNIT in SALINE 1 500ML.BAG IV SCH (23:15)
[2023-09-12] MEDS: ACETAMINOPHEN TAB 500 MG TAB PO SCH (01:10)
[2023-09-12] MEDS: IBUPROFEN IV 800 MG in SODIUM CHLORIDE 0.9% 250 ML IV SCH (02:04)
[2023-09-12] MEDS: IBUPROFEN 600 MG TAB PO SCH (02:42)
[2023-09-12] MEDS: diphenhydrAMINE 50 MG/ML 1 ML VIAL IVP PRN (02:48)
[2023-09-12 06:18] LABS: Basophils % (A) 0 %; Eosinophils # (A) 0.1 k/uL (0-0.7); Eosinophils % (A) 0 %; HCT 26.6 % (34.0-46.0); Lymphocytes # (A) 1.6 k/uL (1.0-4.8); Lymphocytes % (A) 12 %; MCH 30.5 pg (25.0-35.0); MCHC 33.6 g/dL (31.0-37.0); MCV 90.9 fL (80.0-100.0); Mean Platelet Volume 11.5; Monocytes # (A) 0.6 k/uL (0-1.0); Monocytes % (A) 5 %; Neutrophils # (A) 10.5 k/uL (1.3-7.7); Neutrophils % (A) 82 %; Platelet Count 156 k/uL (150-450); RBC 2.93 m/uL (3.80-5.40); RDW 13.6 % (11.5-15.5); WBC 12.9 k/uL (3.8-10.6)
[2023-09-12 06:32] LABS: HGB 8.9 gm/dL (11.4-16.0)
--- NOTE | 2023-09-12 08:22 | P.PN ---
Progress Note - Text Progress Note Date: 09/12/23 Postop day 1 from under spinal anesthesia with intrathecal morphine given for postop pain management. Patient is doing well. Pain is well controlled. On visual analog scale 3/10 Mild itching present No nausea or vomiting reported. No Headache or weakness and numbness in the legs. No complications from spinal anesthesia.
[2023-09-12] MEDS: LABETALOL 100 MG TAB PO PRN (08:48)
[2023-09-12] MEDS: SENNOSIDES-DOCUSATE SODIUM 1 EACH TAB PO SCH (08:52)
--- NOTE | 2023-09-12 09:20 | P.PNOBGPC ---
Subjective - Subjective Patient reports: Reports appetite normal, Reports voiding normally, Reports pain well controlled, Reports ambulating normally : doing well, in NICU (Being observed for some respiratory issues.) Objective - Vital Signs Latest vital signs: Vital Signs Temp Pulse Resp BP Pulse Ox 09/12/23 08:23 99.1 F 85 18 163/96 97 09/12/23 04:00 71 16 138/84 97 09/12/23 00:00 98.5 F 78 16 122/71 95 09/11/23 23:37 74 16 133/73 95 09/11/23 23:22 86 16 111/72 97 09/11/23 23:07 80 16 130/79 97 09/11/23 22:50 97.2 F L 84 16 119/90 97 09/11/23 22:37 85 16 126/80 97 09/11/23 22:22 85 16 129/77 98 09/11/23 22:07 78 16 136/79 97 09/11/23 21:52 81 16 139/83 97 09/11/23 21:37 97.9 F 79 16 139/84 95 09/11/23 19:48 97.9 F 91 18 157/100 97 Intake and Output 09/11/23 09/12/23 09/12/23 22:59 06:59 14:59 Output Total 850 1372 300 Balance -850 -1372 -300 Output: Urine 900 300 Uretheral (Campos) 750 Estimated Blood Loss 850 Output, Quantitative 472 Blood Loss Other: Voiding Method Indwelling Catheter Indwelling Catheter # Voids 1 Weight 94.347 kg - Exam Extremities: Present: normal Abdomen: Present: normal appearance, soft. Absent: distention, tenderness Incision: Present: normal, dry, intact Uterus: Present: normal, firm (The uterine fundus is tonic and minimally tender below the umbilicus.) - Labs Labs: Abnormal Lab Results - Last 24 Hours (Table) 09/11/23 09/11/23 09/11/23 Range/Units 20:18 20:45 22:18 WBC (3.8-10.6) k/uL RBC 3.70 L (3.80-5.40) m/uL Hgb 11.1 L (11.4-16.0) gm/dL Hct 33.4 L (34.0-46.0) % Neutrophils # (1.3-7.7) k/uL PT 9.8 L (10.0-12.5) sec Urine Protein Trace H (Negative) U Benzodiazepines Scrn Detected H (NotDetected) U Marijuana (THC) Screen Detected H (NotDetected) 09/12/23 Range/Units 06:01 WBC 12.9 H (3.8-10.6) k/uL RBC 2.93 L (3.80-5.40) m/uL Hgb 8.9 L D (11.4-16.0) gm/dL Hct 26.6 L (34.0-46.0) % Neutrophils # 10.5 H (1.3-7.7) k/uL PT (10.0-12.5) sec Urine Protein (Negative) U Benzodiazepines Scrn (NotDetected) U Marijuana (THC) Screen (NotDetected) Assessment and Plan (1) Status post section Current Visit: Yes Status: Acute Code(s): Z98.891 - HISTORY OF UTERINE SCAR FROM PREVIOUS SURGERY SNOMED Code(s): 743547401 Plan: Continue routine and postoperative care. I have encouraged the patient to ambulate in the hallways routinely. She is otherwise tolerating a regular diet and performing all activities of daily living. Discharge, at this point, is pending status in the nursery, earliest possible discharge is tomorrow.
[2023-09-12] MEDS: LACTATED RINGERS 1,000 ML IV SCH (19:31)
[2023-09-12] MEDS: LACTATED RINGERS 1,000 ML IV ONE (19:31)
--- NOTE | 2023-09-13 08:56 | P.PNOBGPC ---
Subjective - Subjective Patient reports: Reports appetite normal, Reports voiding normally, Reports pain well controlled, Reports ambulating normally : doing well, in NICU (Receiving prophylactic antibiotics and oxygen supplementation at this time.) Objective - Vital Signs Latest vital signs: Vital Signs Temp Pulse Resp BP Pulse Ox 09/12/23 23:54 98.1 F 66 18 139/88 100 09/12/23 15:01 98.6 F 78 18 144/88 98 09/12/23 12:05 98.5 F 76 20 130/84 98 09/12/23 10:25 151/93 - Exam Extremities: Present: normal Abdomen: Present: normal appearance, soft. Absent: distention, tenderness Incision: Present: normal, dry, intact Uterus: Present: normal, firm (The uterine fundus is minimally tender and tonic below the umbilicus.) Assessment and Plan (1) Status post section Current Visit: Yes Status: Acute Code(s): Z98.891 - HISTORY OF UTERINE SCAR FROM PREVIOUS SURGERY SNOMED Code(s): 492297007 Plan: Continue routine and postoperative care. The patient will likely remain in the hospital until the is discharged or postoperative day #4, whichever comes first. She will continue to ambulate in the hallways routinely and is already performing all activities of daily living.
[2023-09-13] MEDS: FLUoxetine HCL 20 MG CAP PO SCH (16:19)
[2023-09-13 16:35] VITALS: RESP 16
[2023-09-14] MEDS: LABETALOL 200 MG TAB PO SCH (00:21)
--- NOTE | 2023-09-14 08:40 | P.DS ---
Providers Date of admission: 09/11/23 20:00 Expected date of discharge: 09/14/23 Attending physician: Marek Goode Primary care physician: Stated None - Discharge Diagnosis(es) (1) Status post section Current Visit: Yes Status: Acute Hospital Course: The patient is a 32-year-old 3 para 0-0-2-0 admitted at 40-2/7 weeks by good dating parameters. She is admitted having had a hamlet gush of vaginal bleeding at home. She additionally noted decreased movement starting around the same time. She had no other signs or symptoms. On labor and delivery, she was found to have category 2 heart tracing with continued vaginal bleeding and remote from delivery. As a result, she was counseled and taken to the operating room where she was delivered by primary low-transverse section of a viable 7 pound 8 ounce baby boy with Apgars of 9 at 1 minute and 9 at 5 minutes. Evidence of abruption was apparent. Her postoperati ve course was unremarkable with vital signs remaining stable and her temperature was afebrile throughout. The infant was taken to the nursery for supplemental oxygen and prophylactic antibiotics. The patient was deemed stable for discharge by post and postoperative day #3 and was discharged home to follow-up in the office in 2 weeks for an incision check in 6 weeks routinely. Discharge instructions included calling for any significantly increased bleeding or foul-smelling lochia, significantly increased fever or abdominal pain, perineal complaints, breast complaints, incisional complaints, or anything else that concerned her. She was additionally instructed to have nothing in the vagina for at least 6 weeks time to include intercourse and to abstain from any heavy lifting over the same period of time. She was lastly instructed to do no driving until off of all pain medications or 2 weeks time, whichever came first. She understood her instructions and agrees to follow-up as noted above. Discharge medications included continued vitamins as she has opted to breast-feed. She was otherwise to use [id number] analgesic pain medications and declined any narcotics at this time. Maternal blood type is B+ and rubella status is immune. Discharge hemoglobin and hematocrit were 8.9 and 26.6 respectively. As a result, she was instructed to use iron sulfate daily for approximately 1 month to rebuild her hemoglobin. Procedures: #1. Primary low-transverse section Patient Condition at Discharge: Stable Plan - Discharge Summary New Discharge Prescriptions: No Action FLUoxetine HCL [PROzac] 40 mg PO DAILY Pantoprazole [Protonix] 40 mg PO DAILY Ondansetron [Zofran] 4 mg PO Q8HR PRN #6 tab PRN Reason: Nausea Discharge Medication List FLUoxetine HCL [PROzac] 40 mg PO DAILY 01/16/22 [History] Pantoprazole [Protonix] 40 mg PO DAILY 04/01/22 [History] Ondansetron [Zofran] 4 mg PO Q8HR PRN #6 tab 04/30/22 [Rx] Follow up Appointment(s)/Referral(s): Marek Goode MD [STAFF PHYSICIAN] - 2 Weeks Discharge Disposition: HOME SELF-CARE
[2023-09-15 02:58] VITALS: PULSE 80
[2023-09-15 08:32] VITALS: BP 163/101; TEMP 98.2
[2023-09-15] MEDS ORDERED: LABETALOL 200 MG TAB PO SCH (16:00)
== END 2023-09-15 15:00 | disposition home or self-care (01) | DRG 560 ==
LOC: FBPOP 19:42 → 4FBP 20:00 → UNDOADMIN 20:00
PROVIDERS: ADMIT Obstetrics & Gynecology Obstetrics; ATTEND Obstetrics & Gynecology
PROC: 4A0HXCZ Measurement of Products of Conception, Cardiac Rate, External Approach (ICD-10-PCS; 2023-09-11)
PROC: 10E0XZZ Delivery of Products of Conception, External Approach (ICD-10-PCS; principal; 2023-09-11 20:55)
DX: O13.4 Gestational [pregnancy-induced] hypertension without significant proteinuria, complicating childbirth (principal); O76 Abnormality in fetal heart rate and rhythm complicating labor and delivery; O34.13 Maternal care for benign tumor of corpus uteri, third trimester; D25.9 Leiomyoma of uterus, unspecified; O48.0 Post-term pregnancy; O36.8130 Decreased fetal movements, third trimester, not applicable or unspecified; O77.0 Labor and delivery complicated by meconium in amniotic fluid; Z37.0 Single live birth; Z3A.40 40 weeks gestation of pregnancy; Z79.899 Other long term (current) drug therapy
CPT/HCPCS: 59025; 80306; 81003; 82565; 82570; 83615; 84156; 84450; 84460; 84520; 84550; 85025; 85384; 85610; 85730; 86850; 86900; 86901; 88307; 99213

== ENCOUNTER 2024-02-01 17:00 | Inpatient (IN) | payer OTHER ==
--- NOTE | 2024-03-02 13:39 | CT ---
EXAM: CT brain without contrast. DATE OF EXAM: 02/01/24 INDICATION: Patient age:REI DAVIS : 1990 Reason for study: Altered mental status ETOH COMPARISON: None, please note PACS downtime occurred during the radiologist interpretation of these i mages with limited priors/reports.. TECHNIQUE: Multiple axial CT images of the brain were obtained without IV contrast. One or more CT do se reduction strategies were utilized during this examination. Total DLP administered was 1138 mGycm. FINDINGS: Extra-axial spaces: No abnormal extra-axial fluid collections. Ventricular system: Within normal limits Cerebral parenchyma: No acute intraparenchymal hemorrhage or mass effect. The siddiqui-white junction is well differentiated. Cerebellum: Unremarkable. Mass effect: No evidence of midline shift. Intracranial vasculature: unremarkable Soft tissues: Normal. Calvarium/osseous structures: No depressed skull fracture. Paranasal sinuses and mastoid air cells: Clear. Visualized orbits: Orbital contents are intact. IMPRESSION: No acute intracranial process.
== END 2024-02-03 17:09 | disposition home or self-care (01) | DRG 817 ==
LOC: 5NMEDONC 17:00
PROVIDERS: ADMIT Hospitalist; ATTEND Hospitalist
DX: T48.1X2A Poisoning by skeletal muscle relaxants [neuromuscular blocking agents], intentional self-harm, initial encounter (principal); F10.229 Alcohol dependence with intoxication, unspecified; F32.9 Major depressive disorder, single episode, unspecified; F41.9 Anxiety disorder, unspecified; Z63.79 Other stressful life events affecting family and household; Z87.891 Personal history of nicotine dependence